=== PATIENT | male | born 1940 | race Caucasian/White ===

== ENCOUNTER 2016-07-23 11:31 | Emergency (ER) | payer MEDICARE, MEDICAID ==
[2016-07-23 12:05] VITALS: BP 101/54
[2016-07-23 12:44] LABS: CHLORIDE,CL 95 mmol/L (98-109); SODIUM,NA 135 mmol/L (138-146)
--- NOTE | 2016-07-23 13:01 | EDM.PDOC ---
ED HPI RENAL/ - General Chief Complaint: Genitourinary Problem Stated Complaint: UTI/SICK/KNEE PAIN Time Seen by Provider: 07/23/16 12:30 Source of Information: Reports: Patient History Limitations: Reports: No limitations - History of Present Illness INITIAL COMMENTS - FREE TEXT/NARRATIVE: This 75 yo male patient reports to the ED due to increased difficulties urinating and lower abdominal pain. The patient reports his problems started about 1 week ago, but his daughter reports it has been longer than that. Timing/Duration: Reports: Week(s):, Constant, Getting worse Location: Reports: urethral, suprapubic Quality: Reports: ache, burning Severity: moderate Worsens with: Reports: urinating Associated Symptoms: Reports: hesitancy, voiding small amounts - Related Data Allergies/ADRs: Allergies Allergy/AdvReac Type Severity Reaction Status Date / Time No Known Allergies Allergy Verified 03/18/13 15:06 Home Meds: Home Meds Diltiazem HCl [Cardizem LA] 240 mg PO DAILY 03/18/13 [History] Lisinopril 40 mg PO DAILY 03/18/13 [History] Potassium 99 mg PO ASDIRECTED 03/18/13 [History] atorvaSTATin [Lipitor] 20 mg PO BEDTIME 03/18/13 [History] glyBURIDE/Metformin HCl [Glucovance 5-500 MG] 1 each PO TID 03/18/13 [History] Hydrochlorothiazide 25 mg PO DAILY 09/19/15 [History] Aspirin [Ecotrin] 81 mg PO DAILY 04/01/16 [History] Past Medical History HEENT History: Reports: Impaired vision Other HEENT History: wears glasses Cardiovascular History: Reports: Afib, CAD, High cholesterol, Hypertension Respiratory History: Reports: COPD Gastrointestinal History: Reports: None Genitourinary History: Reports: UTI, recurrent Musculoskeletal History: Reports: Osteoarthritis Neurological History: Reports: CVA Psychiatric History: Reports: None Endocrine/Metabolic History: Reports: Diabetes, type II Hematologic History: Reports: None Immunologic History: Reports: None Oncologic (Cancer) History: Reports: None Dermatologic History: Reports: None - Infectious Disease History Infectious Disease History: Reports: Other (see below) Other Infectious Disease History: Pt unsure - Past Surgical History Cardiovascular Surgical History: Reports: Carotid stents, Percutaneous transluminal angioplasty GI Surgical History: Reports: Cholecystectomy Musculoskeletal Surgical History: Reports: Knee replacement Other Musculoskeletal Surgeries/Procedures:: left knee Social & Family History - Family History HEENT: Reports: None Cardiac: Reports: CAD, [place] Respiratory: Reports: Asthma GI: Reports: None : Reports: None OBGYN: Reports: None Musculoskeletal: Reports: None Neurological: Reports: Alzheimers disease Psychiatric: Reports: None Endocrine/Metabolic: Reports: None Hematologic: Reports: None Immunologic: Reports: None Oncologic: Reports: None - Tobacco Use Smoking Status *Q: Former Smoker Years of Tobacco use: 44 Packs/Tins Daily: 2 Used Tobacco, but Quit: Yes Month Tobacco Last Used: unknown Second Hand Smoke Exposure: Yes - Caffeine Use Caffeine Use: Reports: Coffee Caffeine Use Comment: 3 cups a day - Recreational Drug Use Recreational Drug Use: No ED ROS GENERAL - Review of Systems Review Of Systems: ROS reveals no pertinent complaints other than HPI. ED EXAM, RENAL/ - Physical Exam Exam: See Below Exam Limited By: No limitations General Appearance: alert, WD/WN, moderate distress Eye Exam: bilateral eye: EOMI, normal inspection, PERRL Ears: normal external exam, normal canal, hearing grossly normal, normal TMs Nose: normal inspection, normal mucosa, no blood Throat/Mouth: Normal inspection, Normal lips, Normal teeth, Normal gums, Normal oropharynx, Normal voice, No airway compromise Head: atraumatic, normocephalic Neck: normal inspection, supple, non-tender, full range of motion Respiratory/Chest: no respiratory distress, no accessory muscle use, chest non- tender, rhonchi (left lung base) Cardiovascular: normal peripheral pulses, regular rate, rhythm, no edema, no gallop, no JVD, no murmur, no rub GI/Abdominal: normal bowel sounds, soft, no organomegaly, no distention, no abnormal bruit, no mass, tender (lower abdominal pain to palpation) (Male) Exam: Deferred Rectal (Males) Exam: Deferred Back Exam: normal inspection, full range of motion, NT Extremities: normal inspection, normal range of motion, non-tender, normal capillary refill, no pedal edema Neurological: alert, oriented, CN II-XII intact, normal cognition, normal gait, normal reflexes, no motor/sensory deficits Psychiatric: normal affect, normal mood Skin Exam: Warm, Dry, Intact, Normal color, No rash Lymphatic: no adenopathy Course - Vital Signs Last Recorded V/S: Last Vital Signs Temp 36.2 C 07/23/16 12:04 Pulse 105 H 07/23/16 12:04 Resp 18 07/23/16 12:04 BP 101/54 L 07/23/16 12:04 Pulse Ox 98 07/23/16 12:04 - Orders/Labs/Meds Orders: Active Orders 24 hr Category Date Time Status CMP [COMPREHENSIVE METABOLIC PN,CMP] [CHEM] Stat Lab 07/23/16 12:20 Results CULTURE URINE [RM] Stat Lab 07/23/16 12:56 Ordered Labs: Laboratory Tests 07/23/16 07/23/16 07/23/16 Range/Units 12:10 12:20 12:20 WBC 16.3 H (5.0-10.0) 10^3/uL RBC 4.20 L (4.6-6.2) 10^6/uL Hgb 11.4 L (14.0-18.0) g/dL Hct 34.7 L (40.0-54.0) % MCV 82.6 (80-100) fL MCH 27.1 (27.0-34.0) pg MCHC 32.9 L (33.0-35.0) g/dL Plt Count 407 (150-450) 10^3/uL Neut % (Auto) 83.3 H (42.2-75.2) % Lymph % (Auto) 7.5 L (20.5-50.1) % [place] % (Auto) 8.9 H (2-8) % Eos % (Auto) 0.1 L (1.0-3.0) % Baso % (Auto) 0.2 (0.0-1.0) % Add Manual Diff Yes Neutrophils % (Manual) 75 % Band Neutrophils % 9 % Lymphocytes % (Manual) 11 % Monocytes % (Manual) 5 % Sodium 135 L (138-146) mmol/L Potassium 3.6 (3.5-4.9) mmol/L Chloride 95 L (98-109) mmol/L Carbon Dioxide 24 (24-29) mmol/L Anion Gap 19.6 BUN 16 (8-26) mg/dL Creatinine 1.1 (0.6-1.3) mg/dL Est Cr Clr Drug Dosing 45.26 mL/min Estimated GFR (MDRD) > 60 BUN/Creatinine Ratio 14.54 Glucose 217 H (70-105) mg/dL Calcium 1.1 Urine Color Yellow (YELLOW) Urine Appearance Turbid (CLEAR) Urine pH 5.5 (5.0-9.0) Ur Specific [place] >= 1.030 (1.005-1.030) Urine Protein 100 H (NEGATIVE) Urine Glucose (UA) 100 H (NEGATIVE) Urine Ketones Trace H (NEGATIVE) Urine Occult Blood Small H (NEGATIVE) Urine Nitrite Positive H (NEGATIVE) Urine Bilirubin Moderate H (NEGATIVE) Urine Urobilinogen 2.0 H (0.2-1.0) mg/dL Ur Leukocyte Esterase Small H (NEGATIVE) Urine RBC 20-30 H /HPF Urine WBC Packed H (0-5/HPF) /HPF Ur Epithelial Cells Few /HPF Urine Bacteria Many H (0-FEW/HPF) /HPF Departure - Departure Time of Disposition: 12:59 Disposition: Home, Self-Care 01 Condition: fair Clinical Impression: UTI, Urinary tract infectious disease Instructions: Urinary Tract Infection, Adult, [id number] Forms: ED Department Discharge Care Plan Goals: The patient was advised of the examination and lab results during the visit. The patient was given a script for Cipro (500 mg) to take 1 by mouth 2 times per day for 7 days. If the patient has any additional symptoms or concerns, the patient should follow-up with his primary care facility or return to the emergency department. - My Orders Last 24 Hours: My Active Orders 07/23/16 12:20 CMP [COMPREHENSIVE METABOLIC PN,CMP] [CHEM] Stat 07/23/16 12:56 CULTURE URINE [RM] Stat - Assessment/Plan Last 24 Hours: My Active Orders 07/23/16 12:20 CMP [COMPREHENSIVE METABOLIC PN,CMP] [CHEM] Stat 07/23/16 12:56 CULTURE URINE [RM] Stat
== END 2016-07-23 13:16 | disposition home or self-care (01) ==
LOC: DL.ED 11:31
DX: N39.0 Urinary tract infection, site not specified (principal); I48.91 Unspecified atrial fibrillation; I25.10 Atherosclerotic heart disease of native coronary artery without angina pectoris; E78.00 Pure hypercholesterolemia, unspecified; I10 Essential (primary) hypertension; J44.9 Chronic obstructive pulmonary disease, unspecified; M19.90 Unspecified osteoarthritis, unspecified site; E11.9 Type 2 diabetes mellitus without complications; Z90.49 Acquired absence of other specified parts of digestive tract; Z79.899 Other long term (current) drug therapy; Z79.82 Long term (current) use of aspirin; Z87.891 Personal history of nicotine dependence
CPT/HCPCS: 36415; 80053; 81001; 85025; 87086; 87088; 87186; 99283

== ENCOUNTER 2018-05-26 15:43 | Emergency (ER) | payer MEDICARE ==
--- NOTE | 2018-05-26 17:40 | EDM.PDOC ---
ED HPI GENERAL MEDICAL PROBLEM - General Chief Complaint: General Stated Complaint: UNKNOWN Time Seen by Provider: 05/26/18 15:55 Source of Information: Reports: Patient, Family, RN, RN Notes Reviewed History Limitations: Reports: No Limitations - History of Present Illness INITIAL COMMENTS - FREE TEXT/NARRATIVE: Pt to ER from [facility], Thao Osuna NP. Provider states pt was being seen in clinic for a rash on the arms when the patient was found to have some increased SOB, very pale color. Labs and diagnostics done there. Hgb found to be 6.2 at the clinic. Upon arrival to the ER pt denies any problems other than the red, itchy, dry rash on both arms from the elbow to the wrists. Patient denies recent illness, N/V/D, fever, chills, CP, blood in stools. He states he has recently had some increased SOB with activity. He also states he was recently constipated so yesterday took exlax. He states his family told him he took way too much. He states he had a normal BM this morning which did not have any blood. Stool for occult blood was negative at the clinic. Onset: Gradual - Related Data Allergies Allergy/AdvReac Type Severity Reaction Status Date / Time No Known Allergies Allergy Verified 05/26/18 15:54 Home Meds: Home Meds Diltiazem HCl [Cardizem LA] 240 mg PO DAILY 03/18/13 [History] Lisinopril 40 mg PO DAILY 03/18/13 [History] Potassium 99 mg PO DAILY 03/18/13 [History] atorvaSTATin [Lipitor] 20 mg PO BEDTIME 03/18/13 [History] Hydrochlorothiazide 25 mg PO DAILY 09/19/15 [History] Aspirin [Ecotrin] 81 mg PO DAILY 04/01/16 [History] glipiZIDE/Metformin HCl [GlipiZIDE-Metformin 5-500 MG] 1 tab PO DAILY 05/26/18 [ History] Past Medical History HEENT History: Reports: Impaired Vision Other HEENT History: wears glasses Cardiovascular History: Reports: Afib, CAD, High Cholesterol, Hypertension, Stents Respiratory History: Reports: COPD Gastrointestinal History: Reports: None Genitourinary History: Reports: UTI, Recurrent, Other (See Below) Musculoskeletal History: Reports: Osteoarthritis Neurological History: Reports: CVA Psychiatric History: Reports: None Endocrine/Metabolic History: Reports: Diabetes, Type II Hematologic History: Reports: None Immunologic History: Reports: None Oncologic (Cancer) History: Reports: None Dermatologic History: Reports: None - Infectious Disease History Infectious Disease History: Reports: Other (See Below) Other Infectious Disease History: Pt unsure - Past Surgical History Head Surgeries/Procedures: Reports: Other (See Below) Cardiovascular Surgical History: Reports: Carotid Stents, Percutaneous Transluminal Angioplasty GI Surgical History: Reports: Cholecystectomy Male Surgical History: Reports: Prostate Biopsy Musculoskeletal Surgical History: Reports: Knee Replacement Social & Family History - Family History HEENT: Reports: None Cardiac: Reports: CAD, [place] Respiratory: Reports: Asthma GI: Reports: None : Reports: None OBGYN: Reports: None Musculoskeletal: Reports: None Neurological: Reports: Alzheimers Disease Psychiatric: Reports: None Endocrine/Metabolic: Reports: None Hematologic: Reports: None Immunologic: Reports: None Oncologic: Reports: None - Tobacco Use Smoking Status *Q: Never Smoker - Caffeine Use Caffeine Use: Reports: Coffee Caffeine Use Comment: 3 cups a day - Recreational Drug Use Recreational Drug Use: No ED ROS GENERAL - Review of Systems Review Of Systems: ROS reveals no pertinent complaints other than HPI. ED EXAM, GENERAL - Physical Exam Exam: See Below Exam Limited By: No Limitations General Appearance: Alert, WD/WN, No Apparent Distress Eye Exam: Bilateral Eye: EOMI, Normal Inspection Ears: Normal External Exam, Hearing Loss Nose: Normal Inspection Throat/Mouth: Normal Inspection, Normal Voice, No Airway Compromise Head: Atraumatic, Normocephalic Neck: Normal Inspection, Supple, Non-Tender, Limited Range of Motion Respiratory/Chest: No Respiratory Distress, Decreased Breath Sounds, Crackles ( bases bilaterally) Cardiovascular: Normal Peripheral Pulses, Regular Rate, Rhythm, No Edema, No Gallop, No JVD, No Murmur, No Rub Peripheral Pulses: 2+: Radial (L), Radial (R) GI/Abdominal: Normal Bowel Sounds, Soft, Non-Tender, Distended (Male) Exam: Deferred Rectal (Males) Exam: Normal Rectal Tone, Heme + Stool Back Exam: Normal Inspection, Decreased Range of Motion Extremities: Normal Inspection, Non-Tender, No Pedal Edema, Normal Capillary Refill, Limited Range of Motion Neurological: Alert, Oriented, Normal Cognition Psychiatric: Normal Affect, Normal Mood Skin Exam: Warm, Dry, Pallor, Rash (lower arms bilaterally, red, dry/flaky, itchy, non-raised macular) Lymphatic: No Adenopathy Course - Vital Signs Last Recorded V/S: Last Vital Signs Temp 97.6 F 05/26/18 15:49 Pulse 66 05/26/18 15:49 Resp 18 05/26/18 15:49 BP 116/51 L 05/26/18 15:49 Pulse Ox 98 05/26/18 15:49 - Orders/Labs/Meds Orders: Active Orders 24 hr Category Date Time Status RED BLOOD CELLS LP [BBK] Stat Lab 05/26/18 16:39 Received TYPE AND SCREEN [BBK] Stat Lab 05/26/18 16:39 Received Transfuse Red Blood Cells [COMM] Stat Oth 05/26/18 17:17 Ordered Labs: Laboratory Tests 05/26/18 Range/Units 16:39 WBC 6.3 (5.0-10.0) 10^3/uL RBC 3.18 L (4.6-6.2) 10^6/uL Hgb 5.9 L* (14.0-18.0) g/dL Hct 21.4 L (40.0-54.0) % MCV 67.3 L (80-100) fL MCH 18.6 L (27.0-34.0) pg MCHC 27.6 L (33.0-35.0) g/dL Plt Count 407 D (150-450) 10^3/uL Neut % (Auto) 63.8 (42.2-75.2) % Lymph % (Auto) 24.6 (20.5-50.1) % [place] % (Auto) 9.0 H (2-8) % Eos % (Auto) 1.7 (1.0-3.0) % Baso % (Auto) 0.9 (0.0-1.0) % - Re-Assessments/Exams Free Text/Narrative Re-Assessment/Exam: 05/26/18 17:40 Discussed patient case with Dr. Irby who agreed to accept the patient for transfer to . Departure - Departure Time of Disposition: 18:20 Disposition: DC/Tfer to Acute Hospital 02 Condition: Fair, Serious Clinical Impression: GI bleed Qualifiers: GI bleed type/associated pathology: unspecified gastrointestinal hemorrhage type Qualified Code(s): K92.2 - Gastrointestinal hemorrhage, unspecified Anemia Qualifiers: Anemia type: unspecified type Qualified Code(s): D64.9 - Anemia, unspecified Leukopenia Qualifiers: Leukopenia type: neutropenia Neutropenia type: unspecified Qualified Code(s): D70.9 - Neutropenia, unspecified - Discharge Information *PRESCRIPTION DRUG MONITORING PROGRAM REVIEWED*: No *COPY OF PRESCRIPTION DRUG MONITORING REPORT IN PATIENT KJ: No Forms: ED Department Discharge, Interfacility Transfer EMTALA - My Orders Last 24 Hours: My Active Orders 05/26/18 16:39 RED BLOOD CELLS LP [BBK] Stat TYPE AND SCREEN [BBK] Stat 05/26/18 17:17 Transfuse Red Blood Cells [COMM] Stat - Assessment/Plan Last 24 Hours: My Active Orders 05/26/18 16:39 RED BLOOD CELLS LP [BBK] Stat TYPE AND SCREEN [BBK] Stat 05/26/18 17:17 Transfuse Red Blood Cells [COMM] Stat
[2018-05-26] MEDS ORDERED: Pantoprazole 40 MG Vial IVPUSH ONE (18:08)
[2018-05-26 18:32] VITALS: BP 115/50
== END 2018-05-26 18:44 ==
LOC: DL.ED 15:43
DX: K92.2 Gastrointestinal hemorrhage, unspecified (principal); D64.9 Anemia, unspecified; D70.9 Neutropenia, unspecified; R23.8 Other skin changes; I10 Essential (primary) hypertension; Z95.5 Presence of coronary angioplasty implant and graft; I25.10 Atherosclerotic heart disease of native coronary artery without angina pectoris; I48.91 Unspecified atrial fibrillation; E11.9 Type 2 diabetes mellitus without complications; Z79.82 Long term (current) use of aspirin; Z79.899 Other long term (current) drug therapy; Z86.73 Personal history of transient ischemic attack (TIA), and cerebral infarction without residual deficits; Z90.49 Acquired absence of other specified parts of digestive tract
CPT/HCPCS: 36415; 36430; 82272; 85025; 86850; 86900; 86901; 86920; 86922; 96374; 99284; C9113; P9016

== ENCOUNTER 2018-12-18 19:40 | Emergency (ER) | payer MEDICARE, MEDICAID ==
--- NOTE | 2018-12-18 19:48 | EDM.PDOC ---
ED HPI GENERAL MEDICAL PROBLEM - General Chief Complaint: Diabetic Complaint Time Seen by Provider: 12/18/18 19:44 Source of Information: Reports: Patient, EMS History Limitations: Reports: No Limitations - History of Present Illness INITIAL COMMENTS - FREE TEXT/NARRATIVE: pt states feels fine now, denies CP/SOB/RAMOS. EMS found pt unresponsive lying on recliner with BS 50. gave D50 pt immediately woke up and conversant without c/o. - Related Data Allergies Allergy/AdvReac Type Severity Reaction Status Date / Time No Known Allergies Allergy Verified 12/18/18 20:14 Home Meds: Home Meds Diltiazem HCl [Cardizem LA] 240 mg PO DAILY 03/18/13 [History] Lisinopril 40 mg PO DAILY 03/18/13 [History] Potassium 99 mg PO DAILY 03/18/13 [History] atorvaSTATin [Lipitor] 20 mg PO BEDTIME 03/18/13 [History] Hydrochlorothiazide 25 mg PO DAILY 09/19/15 [History] Aspirin [Ecotrin EC] 81 mg PO DAILY 04/01/16 [History] glipiZIDE/Metformin HCl [GlipiZIDE-Metformin 5-500 MG] 1 tab PO DAILY 05/26/18 [ History] Past Medical History HEENT History: Reports: Impaired Vision Other HEENT History: wears glasses Cardiovascular History: Reports: Afib, CAD, High Cholesterol, Hypertension, Stents Respiratory History: Reports: COPD Gastrointestinal History: Reports: None Genitourinary History: Reports: UTI, Recurrent, Other (See Below) Musculoskeletal History: Reports: Osteoarthritis Neurological History: Reports: CVA Psychiatric History: Reports: None Endocrine/Metabolic History: Reports: Diabetes, Type II Hematologic History: Reports: None Immunologic History: Reports: None Oncologic (Cancer) History: Reports: None Dermatologic History: Reports: None - Infectious Disease History Infectious Disease History: Reports: Other (See Below) Other Infectious Disease History: Pt unsure - Past Surgical History Head Surgeries/Procedures: Reports: Other (See Below) Cardiovascular Surgical History: Reports: Carotid Stents, Percutaneous Transluminal Angioplasty GI Surgical History: Reports: Cholecystectomy Male Surgical History: Reports: Prostate Biopsy Musculoskeletal Surgical History: Reports: Knee Replacement Social & Family History - Family History HEENT: Reports: None Cardiac: Reports: CAD, [place] Respiratory: Reports: Asthma GI: Reports: None : Reports: None OBGYN: Reports: None Musculoskeletal: Reports: None Neurological: Reports: Alzheimers Disease Psychiatric: Reports: None Endocrine/Metabolic: Reports: None Hematologic: Reports: None Immunologic: Reports: None Oncologic: Reports: None - Caffeine Use Caffeine Use: Reports: Coffee Caffeine Use Comment: 3 cups a day ED ROS GENERAL - Review of Systems Review Of Systems: ROS reveals no pertinent complaints other than HPI. ED EXAM GENERAL NO PERIP PULSE - Physical Exam Exam: See Below Exam Limited By: No Limitations General Appearance: Alert, WD/WN, No Apparent Distress Eye Exam: Bilateral Eye: PERRL (pupils ess ER @ 4mm) Ears: Hearing Grossly Normal Throat/Mouth: Normal Voice, No Airway Compromise Head: Atraumatic Neck: Non-Tender, Full Range of Motion Respiratory/Chest: No Respiratory Distress Cardiovascular: Regular Rate, Rhythm GI/Abdominal: Soft, Non-Tender Neurological: Alert, Oriented, Normal Cognition, No Motor/Sensory Deficits Psychiatric: Normal Affect, Normal Mood Skin Exam: Warm, Dry, Normal Color Lymphatic: No Adenopathy Course - Vital Signs Last Recorded V/S: Last Vital Signs Temp 36.4 C 12/18/18 19:47 Pulse 86 12/18/18 19:47 Resp 18 12/18/18 19:47 BP 104/52 L 12/18/18 19:47 Pulse Ox 98 12/18/18 19:47 - Orders/Labs/Meds Orders: Active Orders 24 hr Category Date Time Status EKG 12 Lead [EKG Documentation Completion] [RC] STAT Care 12/18/18 19:43 Active Labs: Laboratory Tests 12/18/18 12/18/18 12/18/18 Range/Units 19:46 19:52 19:52 WBC 7.7 (5.0-10.0) 10^3/uL RBC 3.62 L (4.6-6.2) 10^6/uL Hgb 11.5 L D (14.0-18.0) g/dL Hct 34.6 L (40.0-54.0) % MCV 95.6 D (80-100) fL MCH 31.8 (27.0-34.0) pg MCHC 33.2 (33.0-35.0) g/dL Plt Count 288 D (150-450) 10^3/uL Neut % (Auto) 81.1 H (42.2-75.2) % Lymph % (Auto) 10.4 L (20.5-50.1) % [place] % (Auto) 7.0 (2-8) % Eos % (Auto) 1.2 (1.0-3.0) % Baso % (Auto) 0.3 (0.0-1.0) % Sodium 136 (135-145) mmol/L Potassium 3.8 (3.6-5.0) mmol/L Chloride 102 (101-111) mmol/L Carbon Dioxide 23.0 (21.0-31.0) mmol/L Anion Gap 14.8 BUN 20 H (7-18) mg/dL Creatinine 0.9 (0.6-1.3) mg/dL Est Cr Clr Drug Dosing 59.07 mL/min Estimated GFR (MDRD) > 60 BUN/Creatinine Ratio 22.22 Glucose 174 H (74-105) mg/dL POC Glucose 176 H (83-110) mg/dl Calcium 8.9 (8.4-10.2) mg/dl Total Bilirubin 0.4 (0.2-1.0) mg/dL AST 20 (10-42) IU/L ALT 16 (10-60) IU/L Alkaline Phosphatase 74 (42-121) IU/L Troponin I < 0.02 (0.00-0.02) ng/ml Total Protein 6.4 L (6.7-8.2) g/dl Albumin 3.7 (3.2-5.5) g/dl Globulin 2.7 Albumin/Globulin Ratio 1.37 - Re-Assessments/Exams Free Text/Narrative Re-Assessment/Exam: 12/18/18 20:33 re-exam; pt alert conversing with family laughing. family state pt behaving normally. Departure - Departure Time of Disposition: 20:34 Disposition: Home, Self-Care 01 Condition: Good Clinical Impression: Hypoglycemia - Discharge Information Instructions: Hypoglycemia, [id number] Forms: ED Department Discharge Additional Instructions: 1) must check blood sugar daily 2) must eat first before taking diabetic medication 3) follow up at clinic - My Orders Last 24 Hours: My Active Orders 12/18/18 19:43 EKG 12 Lead [EKG Documentation Completion] [RC] STAT - Assessment/Plan Last 24 Hours: My Active Orders 12/18/18 19:43 EKG 12 Lead [EKG Documentation Completion] [RC] STAT
[2018-12-18 19:54] VITALS: BP 104/52; PULSE 86
[2018-12-18 20:21] LABS: ANION GAP 14.8; CHLORIDE,CL 102 mmol/L (101-111); SODIUM,NA 136 mmol/L (135-145)
== END 2018-12-18 20:45 | disposition home or self-care (01) ==
LOC: DL.ED 19:40
DX: E11.649 Type 2 diabetes mellitus with hypoglycemia without coma (principal); I10 Essential (primary) hypertension; E78.00 Pure hypercholesterolemia, unspecified; M19.90 Unspecified osteoarthritis, unspecified site; Z86.73 Personal history of transient ischemic attack (TIA), and cerebral infarction without residual deficits; Z90.49 Acquired absence of other specified parts of digestive tract; Z79.899 Other long term (current) drug therapy; Z79.82 Long term (current) use of aspirin
CPT/HCPCS: 36415; 80053; 82962; 84484; 85025; 93005; 99285-25

== ENCOUNTER 2020-11-17 23:54 | Inpatient (IN) | payer MEDICARE, MEDICAID ==
--- NOTE | 2020-11-18 00:26 | EDM.PDOC ---
"ED HPI GENERAL MEDICAL PROBLEM - General Chief Complaint: General Stated Complaint: AMBULANCE Time Seen by Provider: 11/18/20 00:15 Source of Information: Reports: Patient, EMS History Limitations: Reports: No Limitations - History of Present Illness INITIAL COMMENTS - FREE TEXT/NARRATIVE: This 80 yo male patient was brought to the ED from the [facility]) due to the patient not acting normally. EMS reports the patient was seated in his room in urine soaked clothing upon arrival. The patient reports he has been feeling normal today. The patient had difficulties remembering when he last ate food, but eventually reported he had eaten cereal this morning and again this evening. The patient reports he has not been out of his room today, but was out yesterday. The patient reports he was out of his room yesterday. The patient denies any current pain or complications. Onset: Unknown/Unsure Duration: Other Location: Reports: Generalized Quality: Reports: Other Severity: Moderate Improves with: Reports: None Worsens with: Reports: None Context: Reports: Other Associated Symptoms: Reports: No Other Symptoms - Related Data Allergies Allergy/AdvReac Type Severity Reaction Status Date / Time No Known Allergies Allergy Verified 11/18/20 00:20 Home Meds: Home Meds Diltiazem HCl [Cardizem LA] 240 mg PO DAILY 03/18/13 [History] Lisinopril 40 mg PO DAILY 03/18/13 [History] Potassium 20 meq PO DAILY 03/18/13 [History] atorvaSTATin [Lipitor] 20 mg PO BEDTIME 03/18/13 [History] Hydrochlorothiazide 25 mg PO DAILY 09/19/15 [History] Aspirin [Ecotrin EC] 81 mg PO DAILY 04/01/16 [History] glipiZIDE/Metformin HCl [GlipiZIDE-Metformin 5-500 MG] 1 tab PO DAILY 05/26/18 [History] Ferrous Sulfate [Iron] 324 mg PO DAILY 11/18/20 [History] Omeprazole 20 mg PO DAILY 11/18/20 [History] QUEtiapine [SEROquel] 25 mg PO DAILY 11/18/20 [History] Tamsulosin [Flomax] 0.4 mg PO DAILY 11/18/20 [History] Past Medical History HEENT History: Reports: Impaired Vision Other HEENT History: wears glasses Cardiovascular History: Reports: Afib, CAD, High Cholesterol, Hypertension, Stents Respiratory History: Reports: COPD Gastrointestinal History: Reports: None Genitourinary History: Reports: UTI, Recurrent, Other (See Below) Musculoskeletal History: Reports: Osteoarthritis Neurological History: Reports: CVA Psychiatric History: Reports: None Endocrine/Metabolic History: Reports: Diabetes, Type II Hematologic History: Reports: None Immunologic History: Reports: None Oncologic (Cancer) History: Reports: None Dermatologic History: Reports: None - Infectious Disease History Infectious Disease History: Reports: Other (See Below) Other Infectious Disease History: Pt unsure - Past Surgical History Head Surgeries/Procedures: Reports: Other (See Below) Cardiovascular Surgical History: Reports: Carotid Stents, Percutaneous Transluminal Angioplasty GI Surgical History: Reports: Cholecystectomy Male Surgical History: Reports: Prostate Biopsy Musculoskeletal Surgical History: Reports: Knee Replacement Social & Family History - Family History HEENT: Reports: None Cardiac: Reports: CAD, [place] Respiratory: Reports: Asthma GI: Reports: None : Reports: None OBGYN: Reports: None Musculoskeletal: Reports: None Neurological: Reports: Alzheimers Disease Psychiatric: Reports: None Endocrine/Metabolic: Reports: None Hematologic: Reports: None Immunologic: Reports: None Oncologic: Reports: None - Caffeine Use Caffeine Use: Reports: Coffee Caffeine Use Comment: 3 cups a day ED ROS GENERAL - Review of Systems Review Of Systems: Comprehensive ROS is negative, except as noted in HPI. ED EXAM, GENERAL - Physical Exam Exam: See Below Exam Limited By: No Limitations General Appearance: Alert, WD/WN, Moderate Distress, Obese Eye Exam: Bilateral Eye: EOMI, Normal Inspection, PERRL Ears: Normal External Exam, Normal Canal, Hearing Grossly Normal, Normal TMs Nose: Normal Inspection, Normal Mucosa, No Blood Throat/Mouth: Normal Inspection, Normal Lips, Normal Teeth, Normal Gums, Normal Oropharynx, Normal Voice, No Airway Compromise Head: Atraumatic, Normocephalic Neck: Normal Inspection, Supple, Non-Tender, Full Range of Motion Respiratory/Chest: No Respiratory Distress, No Accessory Muscle Use, Chest Non- Tender, Decreased Breath Sounds Cardiovascular: Normal Peripheral Pulses, Regular Rate, Rhythm, No Edema, No Gallop, No JVD, No Murmur GI/Abdominal: Normal Bowel Sounds, Soft, Non-Tender, No Organomegaly, No Distention, No Abnormal Bruit, No Mass (Male) Exam: Deferred Rectal (Males) Exam: Deferred Back Exam: Normal Inspection, Full Range of Motion, NT Extremities: Normal Inspection, Normal Range of Motion, Non-Tender, Normal Capillary Refill, No Pedal Edema Neurological: Alert, CN II-XII Intact, Normal Cognition, Normal Gait, Normal Reflexes, No Motor/Sensory Deficits, Confused, Slow to Respond Psychiatric: Normal Affect, Normal Mood Skin Exam: Warm, Dry, Intact, Normal Color, No Rash Lymphatic: No Adenopathy #1 Interpretation EKG Date: 11/18/20 Time: 00:10 Rhythm: Other (NSR with LBBB) [place]: Normal P-Wave: Present QRS: Normal ST-T: Normal QT: Normal Comparison: No Change (when compared to EKG from 12/19/18) Course - Vital Signs Last Recorded V/S: Last Vital Signs Temp 100.1 F 11/18/20 00:17 Pulse 84 11/18/20 00:17 Resp 20 11/18/20 00:17 BP 116/43 L 11/18/20 00:17 Pulse Ox 94 L 11/18/20 00:17 - Orders/Labs/Meds Orders: Active Orders 24 hr Category Date Time Status EKG Documentation Completion [RC] STAT Care 11/18/20 00:03 Active CULTURE BLOOD [BC] Stat Lab 11/18/20 00:15 Received CULTURE BLOOD [BC] Stat Lab 11/18/20 00:35 Ordered CULTURE URINE [RM] Urgent Lab 11/18/20 00:15 Received REFLEX LACTIC ACID YES OR NO [CHEM] Routine Lab 11/18/20 01:02 Received cefTRIAXone [Rocephin] 1 gm Med 11/18/20 01:06 Ordered Sodium Chloride 0.9% [Normal Saline] 50 ml IV ONETIME Medication Orders Ceftriaxone Sodium 1 gm/ (Sodium Chloride) 50 mls @ 100 mls/hr IV ONETIME ONE Stop: 11/18/20 01:35 Labs: Laboratory Tests 11/18/20 11/18/20 11/18/20 Range/Units 00:11 00:15 00:15 WBC 17.8 H (5.0-10.0) 10^3/uL RBC 3.81 L (4.6-6.2) 10^6/uL Hgb 12.2 L (14.0-18.0) g/dL Hct 36.5 L (40.0-54.0) % MCV 95.8 (80-100) fL MCH 32.0 (27.0-34.0) pg MCHC 33.4 (33.0-35.0) g/dL Plt Count 216 D (150-450) 10^3/uL Neut % (Auto) 87.3 H (42.2-75.2) % Lymph % (Auto) 2.7 L (20.5-50.1) % [place] % (Auto) 9.8 H (2-8) % Eos % (Auto) 0.0 L (1.0-3.0) % Baso % (Auto) 0.2 (0.0-1.0) % Sodium 139 (136-145) mmol/L Potassium 4.6 (3.5-5.1) mmol/L Chloride 102 (98-107) mmol/L Carbon Dioxide 23 (21-32) mmol/L Anion Gap 18.6 H (7-13) mEq/L BUN 21 H (7-18) mg/dL Creatinine 1.49 H (0.70-1.30) mg/dL Est Cr Clr Drug Dosing TNP Estimated GFR (MDRD) 45 BUN/Creatinine Ratio 14.1 (No establ ref range) Glucose 235 H (70-99) mg/dL Lactic Acid (0.4-2.0) mmol/L Calcium 8.9 (8.5-10.1) mg/dL Total Bilirubin 0.9 (0.2-1.0) mg/dL AST 10 L (15-37) U/L ALT 24 (16-63) U/L Alkaline Phosphatase 72 (46-116) U/L Troponin I High Sens 13 (<=76) pg/mL Total Protein 6.5 (6.4-8.2) g/dL Albumin 3.2 L (3.4-5.0) g/dL Globulin 3.3 Albumin/Globulin Ratio 0.97 Urine Color (YELLOW) Urine Appearance (CLEAR) Urine pH (5.0-9.0) Ur Specific [place] (1.005-1.030) Urine Protein (NEGATIVE) Urine Glucose (UA) (NEGATIVE) Urine Ketones (NEGATIVE) Urine Occult Blood (NEGATIVE) Urine Nitrite (NEGATIVE) Urine Bilirubin (NEGATIVE) Urine Urobilinogen (0.2-1.0) mg/dL Ur Leukocyte Esterase (NEGATIVE) Urine RBC (0-5) /HPF Urine WBC (0-5/HPF) /HPF Ur Epithelial Cells (NOT SEEN) /HPF Amorphous Sediment (NOT SEEN) /HPF Urine Bacteria (0-FEW/HPF) /HPF Urine Mucus (NOT SEEN) /LPF Influenza Type A RNA Negative (NEGATIVE) Influenza Type B RNA Negative (NEGATIVE) SARS-CoV-2 RNA (SWETHA) Negative (NEGATIVE) 11/18/20 11/18/20 Range/Units 00:15 00:15 WBC (5.0-10.0) 10^3/uL RBC (4.6-6.2) 10^6/uL Hgb (14.0-18.0) g/dL Hct (40.0-54.0) % MCV (80-100) fL MCH (27.0-34.0) pg MCHC (33.0-35.0) g/dL Plt Count (150-450) 10^3/uL Neut % (Auto) (42.2-75.2) % Lymph % (Auto) (20.5-50.1) % [place] % (Auto) (2-8) % Eos % (Auto) (1.0-3.0) % Baso % (Auto) (0.0-1.0) % Sodium (136-145) mmol/L Potassium (3.5-5.1) mmol/L Chloride (98-107) mmol/L Carbon Dioxide (21-32) mmol/L Anion Gap (7-13) mEq/L BUN (7-18) mg/dL Creatinine (0.70-1.30) mg/dL Est Cr Clr Drug Dosing Estimated GFR (MDRD) BUN/Creatinine Ratio (No establ ref range) Glucose (70-99) mg/dL Lactic Acid 3.1 H* (0.4-2.0) mmol/L Calcium (8.5-10.1) mg/dL Total Bilirubin (0.2-1.0) mg/dL AST (15-37) U/L ALT (16-63) U/L Alkaline Phosphatase (46-116) U/L Troponin I High Sens (<=76) pg/mL Total Protein (6.4-8.2) g/dL Albumin (3.4-5.0) g/dL Globulin Albumin/Globulin Ratio Urine Color Yellow (YELLOW) Urine Appearance Turbid (CLEAR) Urine pH 5.5 (5.0-9.0) Ur Specific [place] >= 1.030 (1.005-1.030) Urine Protein 30 H (NEGATIVE) Urine Glucose (UA) Negative (NEGATIVE) Urine Ketones Negative (NEGATIVE) Urine Occult Blood Moderate H (NEGATIVE) Urine Nitrite Positive H (NEGATIVE) Urine Bilirubin Negative (NEGATIVE) Urine Urobilinogen 0.2 (0.2-1.0) mg/dL Ur Leukocyte Esterase Large H (NEGATIVE) Urine RBC 10-20 H (0-5) /HPF Urine WBC Packed H (0-5/HPF) /HPF Ur Epithelial Cells Few (NOT SEEN) /HPF Amorphous Sediment Few (NOT SEEN) /HPF Urine Bacteria Many H (0-FEW/HPF) /HPF Urine Mucus Not seen (NOT SEEN) /LPF Influenza Type A RNA (NEGATIVE) Influenza Type B RNA (NEGATIVE) SARS-CoV-2 RNA (SWETHA) (NEGATIVE) Meds: Medications Generic Name Dose Route Start Last Admin Trade Name Freq PRN Reason Stop Dose Admin Ceftriaxone Sodium 1 gm/ 50 mls @ 100 mls/hr 11/18/20 01:06 Sodium Chloride IV 11/18/20 01:35 ONETIME ONE - Radiology Interpretation Free Text/Narrative:: [facility] Final Radiology Report Call: [phone] assistance Online chat: [email or web address] Name: EVELYN CORTES Age: 80Years M Date: 11/18/2020 SSN: -- : [id number] Study: CT HEAD WO CONT Requesting Physician: Fred Gramajo Images: 150 Addl Studies: Provided Clinical History: Altered mentation Contrast: Without Contrast Medium: Contrast Amount: Contrast Method: Page 1 of 2 PROCEDURE INFORMATION: Exam: CT Head Without Contrast Exam date and time: 11/18/2020 12:32 AM Age: 80 years old Clinical indication: Other: Altered mentation TECHNIQUE: Imaging protocol: Computed tomography of the head without contrast. Radiation optimization: All CT scans at this facility use at least one of these dose optimization techniques: automated exposure control; mA and/or kV adjustment per patient size (includes targeted exams where dose is matched to clinical indication); or iterative reconstruction. COMPARISON: CT Head wo Cont 12/19/2018 3:36 AM FINDINGS: Brain: There is moderate diffuse nonspecific white matter lucency. Differential diagnosis includes demyelination, gliosis, small vessel disease. Small vessel disease is favored. Stable subcentimeter remoteNo mass, collection or hemorrhage. No evolving infarct. lacunar infarcts left basal ganglia. Cerebral ventricles: There is moderate generalized cerebral volume loss. Paranasal sinuses: There is nonspecific mucoperiosteal thickening in the right maxillary sinus. The visualized paranasal sinuses are otherwise clear. Mastoid air cells: Mastoid air cells well aerated. Bones/joints: The temporal bones are symmetric and unremarkable. No acute bony findings are identified. Soft tissues: There is no soft tissue abnormality seen. IMPRESSION: 1. Chronic change, probably chronic ischemic change as described. 2. No acute intracranial hemorrhage. 3. No acute intracranial findings. EVELYN CORTES | Final Radiology Report CONFIDENTIALITY STATEMENT This report is intended only for use by the referring physician, and only in accordance with law. If you received this in error, call [phone]. Page 2 of 2 4. No change. Thank you for allowing us to participate in the care of your patient. Dictated and Authenticated by: Cain Quinn MD 11/18/2020 12:59 AM Central Time ([place] & [place]) [facility] Final Radiology Report Call: [phone] assistance Online chat: [email or web address] Name: EVELYN CORTES Age: 80Years M Date: 11/18/2020 SSN: -- : [id number] Study: CR CHEST 1V FRONTAL Requesting Physician: Fred Gramajo Images: 1 Addl Studies: Provided Clinical History: Altered mentation Contrast: Contrast Medium: Contrast Amount: Contrast Method: CONFIDENTIALITY STATEMENT This report is intended only for use by the referring physician, and only in accordance with law. If you received this in error, call [phone]. Page 1 of 1 PROCEDURE INFORMATION: Exam: XR Chest Exam date and time: 11/18/2020 12:37 AM Age: 80 years old Clinical indication: Other: Altered mentation TECHNIQUE: Imaging protocol: XR of the chest. Views: 1 view. COMPARISON: CR Chest 1V Frontal 12/19/2018 3:35 AM FINDINGS: Lungs: There is no evidence of pulmonary edema. There is minor nonspecific patchy linear density at left lung base which could be atelectatic, or inflammatory. Pleural spaces: No pleural effusion. No pneumothorax. Heart/Mediastinum: Prominent heart size is likely accentuated by portable technique. Coronary territory stents are visualized. Bones/joints: No acute bony findings are identified. IMPRESSION: There is minor nonspecific patchy linear density at left lung base which could be atelectatic, or inflammatory. Thank you for allowing us to participate in the care of your patient. Dictated and Authenticated by: Cain Quinn MD 11/18/2020 12:57 AM Central Time ([place] & [place]) Departure - Departure Time of Disposition: 01:21 Disposition: Home, Self-Care 01 Condition: Fair Clinical Impression: Sepsis Qualifiers: Sepsis type: sepsis due to unspecified organism Sepsis acute organ dysfunction status: unspecified Qualified Code(s): A41.9 - Sepsis, unspecified organism UTI (urinary tract infection) Qualifiers: Urinary tract infection type: site unspecified Hematuria presence: with hematuria Qualified Code(s): N39.0 - Urinary tract infection, site not specified; R31.9 - Hematuria, unspecified - Discharge Information *PRESCRIPTION DRUG MONITORING PROGRAM REVIEWED*: Not Applicable *COPY OF PRESCRIPTION DRUG MONITORING REPORT IN PATIENT KJ: Not Applicable Care Plan Goals: Discussed the patient's history, examination, lab, CT results and treatment's given with Dr. Peña. Dr. Peña accepted the patient for continued evaluation and further management as an inpatient at [facility]. Sepsis Event Note (ED) - Evaluation Sepsis Screening Result: Possible Sepsis Risk - Focused Exam Vital Signs: Vital Signs Temp Pulse Resp BP Pulse Ox 11/18/20 00:17 100.1 F 84 20 116/43 L 94 L - My Orders Last 24 Hours: My Active Orders 11/18/20 00:03 EKG Documentation Completion [RC] STAT 11/18/20 00:15 CULTURE BLOOD [BC] Stat CULTURE URINE [RM] Urgent 11/18/20 00:35 CULTURE BLOOD [BC] Stat 11/18/20 01:02 REFLEX LACTIC ACID YES OR NO [CHEM] Routine 11/18/20 01:06 cefTRIAXone [Rocephin] 1 gm Sodium Chloride 0.9% [Normal Saline] 50 ml IV ONETIME - Assessment/Plan Last 24 Hours: My Active Orders 11/18/20 00:03 EKG Documentation Completion [RC] STAT 11/18/20 00:15 CULTURE BLOOD [BC] Stat CULTURE URINE [RM] Urgent 11/18/20 00:35 CULTURE BLOOD [BC] Stat 11/18/20 01:02 REFLEX LACTIC ACID YES OR NO [CHEM] Routine 11/18/20 01:06 cefTRIAXone [Rocephin] 1 gm Sodium Chloride 0.9% [Normal Saline] 50 ml IV ONETIME"
[2020-11-18 00:49] LABS: ANION GAP 18.6 mEq/L (7-13); CHLORIDE,CL 102 mmol/L (98-107); SODIUM,NA 139 mmol/L (136-145)
--- NOTE | 2020-11-18 00:57 | CR ---
PROCEDURE INFORMATION: Exam: XR Chest Exam date and time: 11/18/2020 12:37 AM Age: 80 years old Clinical indication: Other: Altered mentation TECHNIQUE: Imaging protocol: XR of the chest. Views: 1 view. COMPARISON: CR Chest 1V Frontal 12/19/2018 3:35 AM FINDINGS: Lungs: There is no evidence of pulmonary edema. There is minor nonspecific patchy linear density at left lung base which could be atelectatic, or inflammatory. Pleural spaces: No pleural effusion. No pneumothorax. Heart/Mediastinum: Prominent heart size is likely accentuated by portable technique. Coronary territory stents are visualized. Bones/joints: No acute bony findings are identified. IMPRESSION: There is minor nonspecific patchy linear density at left lung base which could be atelectatic, or inflammatory.
--- NOTE | 2020-11-18 01:00 | CT ---
PROCEDURE INFORMATION: Exam: CT Head Without Contrast Exam date and time: 11/18/2020 12:32 AM Age: 80 years old Clinical indication: Other: Altered mentation TECHNIQUE: Imaging protocol: Computed tomography of the head without contrast. Radiation optimization: All CT scans at this facility use at least one of these dose optimization techniques: automated exposure control; mA and/or kV adjustment per patient size (includes targeted exams where dose is matched to clinical indication); or iterative reconstruction. COMPARISON: CT Head wo Cont 12/19/2018 3:36 AM FINDINGS: Brain: There is moderate diffuse nonspecific white matter lucency. Differential diagnosis includes demyelination, gliosis, small vessel disease. Small vessel disease is favored. Stable subcentimeter remoteNo mass, collection or hemorrhage. No evolving infarct. lacunar infarcts left basal ganglia. Cerebral ventricles: There is moderate generalized cerebral volume loss. Paranasal sinuses: There is nonspecific mucoperiosteal thickening in the right maxillary sinus. The visualized paranasal sinuses are otherwise clear. Mastoid air cells: Mastoid air cells well aerated. Bones/joints: The temporal bones are symmetric and unremarkable. No acute bony findings are identified. Soft tissues: There is no soft tissue abnormality seen. IMPRESSION: 1. Chronic change, probably chronic ischemic change as described. 2. No acute intracranial hemorrhage. 3. No acute intracranial findings. 4. No change.
[2020-11-18] MEDS ORDERED: cefTRIAXone 1 GM in Sodium Chloride 0.9% 50 ML IV ONE (01:06)
[2020-11-18 01:09] LABS: CORONAVIRUS COVID-19 NAA NEGATIVE (NEGATIVE)
[2020-11-18] MEDS ORDERED: Sodium Chloride 0.9% 1,000 ML IV SCH ×2 (01:15→02:00)
[2020-11-18] MEDS ORDERED: Sodium Chloride 0.9% 10 ML Syringe FLUSH PRN (02:00)
[2020-11-18] MEDS ORDERED: Acetaminophen 325 MG Tab PO PRN (02:00)
[2020-11-18] MEDS ORDERED: Ondansetron 4 MG/2 ML SDV IVPUSH PRN (02:00)
[2020-11-18] MEDS ORDERED: 50% Dextrose in Water 50 ML Syringe IVPUSH PRN (02:06)
[2020-11-18] MEDS ORDERED: Glucagon,Human Recombinant 1 MG Vial IM PRN (02:06)
--- NOTE | 2020-11-18 02:12 | PCM.SN.2 ---
- Free Text/Narrative Note: START OF DOCTOR YANIRAMILandon HISTORY AND PHYSICAL / CONSULTATION NOTE Chief Complaint: Encephalopathy History of Present Illness: The patient is new to-year-old male who was transferred from assisted living because of encephalopathy. Upon questioning of the patient he endorses no complaints and for the most part is able to answer questions appropriately. He denies fever, rigors, nausea, vomiting, cough, wheeze, abdominal pain, diarrhea, myalgia, dysuria, chest pain, dyspnea, lightheadedness, dizziness, or any other constitutional complaints. In the emergency department he is found to have urinary tract infection. He presents for further evaluation Surgical History: Cholecystectomy, appendectomy, cardiac stent placement, prostate biopsy, left knee surgery. There is previous documentation of carotid stent however the patient is uncertain of this Family History: Cancer, stroke, diabetes, coronary artery disease, hypertension, hyperlipidemia Social History: Tobacco: Former smoker Alcohol: Denies Caffeine: Coffee Drugs: Never Allergies: No known drug allergies Code Status: Full Pertinent Laboratory Results / Pertinent Radiology Results / Pertinent Diagnostic Results / Pertinent Vital Signs: Blood pressure 99/45, pulse 90, respirations 20, temperature 98.8 degrees, 94%, creatinine 1.49, glucose 23 5, white blood cell count 17.8, hemoglobin 12.2 Physical Examination: General: -Alert and oriented to name and place but not year -No acute distress -No dyspnea -No tachypnea Head: -Atraumatic -Normocephalic Eyes: -Pupils equally round and reactive to light and accommodation -Extraocular muscles intact Neurological: -Cranial nerves II-XII intact Neck: -No jugular venous distention -No thyromegaly -No cervical lymphadenopathy Heart: -Regular rate -Regular rhythm -No murmurs -No gallops -No rubs Lungs: -No wheeze -No rhonchi -No rales -Distant breath sounds bilaterally Abdomen: -Normal bowel sounds in all four quadrants -No rebound -No guarding -No tenderness Extremities: -2/4 pulse in all four extremities -No clubbing -No cyanosis -No edema -No calf tenderness present bilaterally -Negative Homans sign bilaterally Musculoskeletal: -5/5 bilateral upper extremity strength -5/5 bilateral lower extremity strength -Sensorium of bilateral upper extremities are equal and intact -Sensorium of bilateral lower extremities are equal and intact Additional Details / Additional Findings / Exceptions / Miscellaneous: Assessment / Plan: Urinary tract infection. Zosyn 3.375 g IV every 6 hours. Check PSA. Blood culture x2 drawn in the emergency department Acute renal sufficiency. Will monitor creatinine intermittently. IV normal saline 75 mils per hour Paroxysmal atrial fibrillation History of CVA Osteoarthritis BPH Anemia. Will monitor hemoglobin levels intermittently. Check serum ferritin, iron panel, fecal occult blood COPD. DuoNeb every 6 hours Coronary artery disease, status post [place], status post [place] Diabetes. Will check fasting glucose before every meal and at bedtime and provide sulci scale GERD Hyperlipidemia Hypertension Query history of peripheral vascular disease DVT prophylaxis. Heparin 5000 units subcutaneously every 12 hours Disposition: Anticipate discharge with 24 hours. At the time of admission, the patient home medications were pending input into the EMR/DHR system. Once their input, they will be reviewed and reconciled END OF DOCTOR EMAMIS HISTORY AND PHYSICAL / CONSULTATION NOTE
[2020-11-18] MEDS: Heparin Sodium 5,000 Units/ML Vial SUBCUT SCH ×2 (02:28→14:50)
[2020-11-18] MEDS: Piperacillin/Tazobactam 3.375 GM in Sodium Chloride 0.9% 100 ML IV SCH ×5 (02:28→23:56)
--- NOTE | 2020-11-18 07:27 | PCM.SN.2 ---
- Free Text/Narrative Note: START OF DOCTOR MANJEET PROGRESS NOTE Subjective: The patient endorses no complaints at this time. He denies fever, rigors, nausea, vomiting, cough, wheeze, abdominal pain, chest pain, dyspnea, dysuria, or any other constitutional complaints. I explained to the patient his current medical condition and plan of care and I have answered all of his questions Objective: General: -Alert -No acute distress -No dyspnea -Patient mildly tachypneic Heart: -Regular rate -Regular rhythm -No murmurs -No gallops -No rubs Lungs: -No wheeze -No rhonchi -No rales Distant breath sounds bilaterally- Abdomen: -Normal bowel sounds in all four quadrants -No rebound -No guarding -No tenderness Extremities: -2/4 pulse in all four extremities -No clubbing -No cyanosis -No edema Additional Details / Additional Findings / Exceptions / Miscellaneous: Pertinent Laboratory Results / Pertinent Radiology Results / Pertinent Diagnostic Results / Pertinent Vital Signs: Vital signs stable Assessment / Plan: Urinary tract infection. Zosyn 3.375 g IV every 6 hours. Check PSA. Blood culture x2 drawn in the emergency department Acute renal sufficiency. Will monitor creatinine intermittently. IV normal saline 75 mils per hour Paroxysmal atrial fibrillation. Cardizem LA 240 mg p.o. daily History of CVA. Aspirin 81 mg p.o. daily plus Lipitor 20 mg p.o. nightly Osteoarthritis BPH. Flomax 0.4 mg p.o. daily. PSA grossly elevated for which patient will require outpatient follow-up with urology upon discharge Iron deficiency anemia. Will monitor hemoglobin levels intermittently. Ferrous sulfate 3 and 25 mg p.o. twice daily plus vitamin C 500 mg p.o. daily COPD. DuoNeb every 6 hours plus Solu-Medrol 60 mg IV every 8 hours Coronary artery disease, status post [place], status post [place]. Aspirin 81 mg p.o. daily plus Lipitor 20 mg p.o. nightly Diabetes. Will check fasting glucose before every meal and at bedtime and provide sulci scale plus glipizide/Metformin 5/500 mg p.o. daily GERD. Prilosec 20 mg p.o. daily Hyperlipidemia. Lipitor 20 mg p.o. nightly Hypertension. Cardizem LA 240 mg p.o. daily Query history of peripheral vascular disease. Aspirin 81 mg p.o. daily plus Lipitor 20 mg p.o. nightly DVT prophylaxis. Heparin 5000 units subcutaneously every 12 hours Disposition: Anticipate discharge within 24 hours END OF DOCTOR EMAMIS PROGRESS NOTE
[2020-11-18] MEDS: Albuterol/Ipratropium 3.0-0.5 MG/3 ML Neb Soln NEB SCH ×3 (07:45→18:51)
[2020-11-18] MEDS: Insulin Lispro 100 Units/ML 3 ML Vial SUBCUT SCH ×3 (08:55→17:07)
[2020-11-18] MEDS: methylPREDNISolone Sodium Succinate 40 MG/1 ML SDV IVPUSH SCH ×3 (08:58→23:51)
[2020-11-18] MEDS ORDERED: Omeprazole 20 MG Cap.CR PO SCH (09:00)
[2020-11-18] MEDS: Aspirin 81 MG Tab.EC PO SCH (09:04)
[2020-11-18] MEDS: Ascorbic Acid 500 MG Tab PO SCH (09:06)
[2020-11-18] MEDS: Diltiazem 240 MG Cap.ER PO SCH (09:06)
[2020-11-18] MEDS: Ferrous Sulfate 325 MG Tab PO SCH ×2 (09:06→17:49)
[2020-11-18] MEDS: Tamsulosin 0.4 MG Cap.ER PO SCH (09:06)
[2020-11-18] MEDS: glipiZIDE 5 MG Tab PO SCH (09:07)
[2020-11-18] MEDS: metFORMIN 500 MG Tab PO SCH (09:07)
--- NOTE | 2020-11-18 11:43 | PCM.SN.2 ---
- Free Text/Narrative Note: START OF DOCTOR EMAMIS DISCHARGE SUMMARY Date of Admission: November 18, 2020 Date of Discharge: 11:41 AM on November 18, 2020 Primary Diagnosis: Urinary tract affection Secondary Diagnosis: Acute renal insufficiency, status post treatment Paroxysmal atrial fibrillation History of CVA Osteoarthritis BPH Iron deficiency anemia COPD Coronary artery disease, status post MD, status post stent Diabetes GERD Hyperlipidemia Hypertension Query history of peripheral vascular disease Consultations: None Condition on Discharge: Fair Disposition: The patient will be advised follow-up with urology 2 to 4 weeks post discharge for diagnosis PSA. The elevation of PSA is disproportionate to what would be expected with her urinary tract infection The patient may follow-up with his primary care physician or with a provider as needed Discharge Medications: Metformin 500 mg p.o. twice daily Imdur 30 mg p.o. daily Glucotrol XL 5 mg p.o. daily Bactrim 400/80 m tab p.o. twice daily. Quantity 12. 0 refills Flomax 0.4 mg p.o. daily Seroquel 25 mg p.o. nightly Prilosec 20 mg p.o. daily Prednisone 10 mg p.o.: 4 tabs daily x3 days then 3 tabs daily x3 days then 2 tabs daily x3 days then 1 tab daily x3 days. Quantity sufficient. 0 refills Ferrous sulfate 325 mg p.o. twice daily Vitamin C 500 mg p.o. daily Aspirin 81 mg p.o. daily Lipitor 20 mg p.o. nightly Cardizem LA 240 mg p.o. daily Lisinopril 40 mg p.o. daily to be resumed on November 21, 2020 END OF DOCTOR EMAMIS DISCHARGE SUMMARY
[2020-11-18] MEDS: QUEtiapine 25 MG Tab PO SCH (12:37)
[2020-11-18] MEDS ORDERED: Insulin Lispro 100 Units/ML 3 ML Vial SUBCUT ONE ×3 (20:57→23:38)
[2020-11-18] MEDS ORDERED: atorvaSTATin 20 MG Tab PO SCH (21:00)
[2020-11-19] MEDS: Albuterol/Ipratropium 3.0-0.5 MG/3 ML Neb Soln NEB SCH ×2 (00:52→07:48)
[2020-11-19] MEDS ORDERED: Omeprazole 20 MG Cap.CR PO SCH (06:00)
[2020-11-19] MEDS: Piperacillin/Tazobactam 3.375 GM in Sodium Chloride 0.9% 100 ML IV SCH (06:03)
--- NOTE | 2020-11-19 07:03 | PCM.SN.2 ---
- Free Text/Narrative Note: START OF DOCTOR EMAMIS DISCHARGE SUMMARY Date of Admission: November 18, 2020 Date of Discharge: 7:01 AM on November 19, 2020 Primary Diagnosis: Urinary tract affection Secondary Diagnosis: Gram-negative alyssa bacteremia, speciation pending at time of discharge Acute renal insufficiency, status post treatment Paroxysmal atrial fibrillation History of CVA Osteoarthritis BPH Iron deficiency anemia COPD Coronary artery disease, status post AR, status post stent Diabetes GERD Hyperlipidemia Hypertension Query history of peripheral vascular disease Consultations: None Condition on Discharge: Fair Disposition: The patient will be advised follow-up with urology 2 to 4 weeks post discharge for diagnosis PSA. The elevation of PSA is disproportionate to what would be expected with her urinary tract infection The patient is advised to follow-up with his primary care physician or with a provider 3-5 days post discharge for posthospitalization evaluation and for antibiotic tailoring once final speciation of blood cultures/urine culture is available Discharge Medications: Metformin 500 mg p.o. twice daily Imdur 30 mg p.o. daily Glucotrol XL 5 mg p.o. daily Bactrim 400/80 m tab p.o. twice daily. Quantity 20. 0 refills Flomax 0.4 mg p.o. daily Seroquel 25 mg p.o. nightly Prilosec 20 mg p.o. daily Prednisone 10 mg p.o.: 4 tabs daily x3 days then 3 tabs daily x3 days then 2 tabs daily x3 days then 1 tab daily x3 days. Quantity sufficient. 0 refills Ferrous sulfate 325 mg p.o. twice daily Vitamin C 500 mg p.o. daily Aspirin 81 mg p.o. daily Lipitor 20 mg p.o. nightly Cardizem LA 240 mg p.o. daily Lisinopril 40 mg p.o. daily to be resumed on November 21, 2020 END OF DOCTOR EMAMIS DISCHARGE SUMMARY
[2020-11-19] MEDS ORDERED: Insulin Lispro 100 Units/ML 3 ML Vial SUBCUT SCH (08:00)
[2020-11-19 08:16] VITALS: BP 110/81; PULSE 76
[2020-11-19] MEDS: Diltiazem 240 MG Cap.ER PO SCH (08:25)
[2020-11-19] MEDS: Aspirin 81 MG Tab.EC PO SCH (08:26)
[2020-11-19] MEDS: glipiZIDE 5 MG Tab PO SCH (08:26)
[2020-11-19] MEDS: metFORMIN 500 MG Tab PO SCH (08:27)
[2020-11-19] MEDS: Ferrous Sulfate 325 MG Tab PO SCH (08:27)
[2020-11-19] MEDS: Ascorbic Acid 500 MG Tab PO SCH (08:27)
[2020-11-19] MEDS: QUEtiapine 25 MG Tab PO SCH (08:28)
[2020-11-19] MEDS: Tamsulosin 0.4 MG Cap.ER PO SCH (08:28)
[2020-11-19] MEDS: methylPREDNISolone Sodium Succinate 40 MG/1 ML SDV IVPUSH SCH (08:48)
[2020-11-19] MEDS ORDERED: Heparin Sodium 5,000 Units/ML Vial SUBCUT SCH (09:00)
== END 2020-11-19 10:30 | DRG 690 ==
LOC: DL.ED 23:54 → DL.MS 11-18 01:18 → INTOOBSV 11-18 01:18 → OBSVTOIN 11-18 01:18 → DL.ED 11-18 01:27
PROVIDERS: ADMIT Internal Medicine; ATTEND Internal Medicine
DX: A41.9 Sepsis, unspecified organism (principal); N39.0 Urinary tract infection, site not specified; R31.9 Hematuria, unspecified; H54.7 Unspecified visual loss; I48.91 Unspecified atrial fibrillation; N28.9 Disorder of kidney and ureter, unspecified; I48.0 Paroxysmal atrial fibrillation; E78.00 Pure hypercholesterolemia, unspecified; M19.90 Unspecified osteoarthritis, unspecified site; N40.0 Benign prostatic hyperplasia without lower urinary tract symptoms; D50.9 Iron deficiency anemia, unspecified; J44.9 Chronic obstructive pulmonary disease, unspecified; I25.10 Atherosclerotic heart disease of native coronary artery without angina pectoris; E11.9 Type 2 diabetes mellitus without complications; K21.9 Gastro-esophageal reflux disease without esophagitis; E78.5 Hyperlipidemia, unspecified; I10 Essential (primary) hypertension; Z20.822 Contact with and (suspected) exposure to COVID-19; D64.9 Anemia, unspecified; I73.9 Peripheral vascular disease, unspecified; Z87.440 Personal history of urinary (tract) infections; Z95.828 Presence of other vascular implants and grafts; Z79.84 Long term (current) use of oral hypoglycemic drugs; Z79.82 Long term (current) use of aspirin; Z79.899 Other long term (current) drug therapy; Z90.49 Acquired absence of other specified parts of digestive tract; I25.2 Old myocardial infarction; Z98.890 Other specified postprocedural states; Z95.5 Presence of coronary angioplasty implant and graft; Z86.73 Personal history of transient ischemic attack (TIA), and cerebral infarction without residual deficits; Z87.891 Personal history of nicotine dependence
CPT/HCPCS: 0240U; 36415; 70450; 71045; 80053; 81001; 82272; 82565; 82728; 82947; 83540; 83550; 83605; 84153; 84484; 85025; 87040; 87077; 87086; 87088; 87186; 93005; 93010; 94640; 99284; 99285-25; A9270-GY; J0696; J1644; J1815-GY; J2543; J2920; J7030; J7620-GY

== ENCOUNTER 2020-12-06 02:49 | Emergency (ER) | payer MEDICARE, MEDICAID ==
[2020-12-06 03:00] VITALS: PULSE 72
--- NOTE | 2020-12-06 03:14 | EDM.PDOC ---
"<Ramon Lam Gaudencio - Last Filed: 12/06/20 09:18> ED HPI GENERAL MEDICAL PROBLEM - General Stated Complaint: AMBULANCE Time Seen by Provider: 12/06/20 03:01 - Related Data Allergies Allergy/AdvReac Type Severity Reaction Status Date / Time No Known Allergies Allergy Verified 12/06/20 03:03 Home Meds: Home Meds Diltiazem HCl [Cardizem LA] 240 mg PO DAILY 03/18/13 [History] Lisinopril 40 mg PO DAILY 03/18/13 [History] atorvaSTATin [Lipitor] 20 mg PO BEDTIME 03/18/13 [History] Aspirin [Ecotrin EC] 81 mg PO DAILY 04/01/16 [History] Ascorbic Acid [Vitamin C] 500 mg PO DAILY 30 Days #30 tablet 11/18/20 [Rx] Ferrous Sulfate 325 mg PO BIDMEALS 30 Days #60 tablet 11/18/20 [Rx] Isosorbide Mononitrate [Imdur] 30 mg PO DAILY 11/18/20 [History] Omeprazole 20 mg PO DAILY 11/18/20 [History] QUEtiapine [SEROquel] 25 mg PO BEDTIME 11/18/20 [History] Tamsulosin [Flomax] 0.4 mg PO DAILY 11/18/20 [History] glipiZIDE [Glucotrol XL] 5 mg PO DAILY 11/18/20 [History] metFORMIN [Glucophage] 500 mg PO BIDMEALS 11/18/20 [History] predniSONE [Prednisone] 10 mg PO DAILY 1 Days #1 tablet 11/18/20 [Rx] Sulfamethoxazole/Trimethoprim [Bactrim 400-80 MG] 1 each PO BID 10 Days #20 tablet 11/19/20 [Rx] Course - Re-Assessments/Exams Free Text/Narrative Re-Assessment/Exam: 12/06/20 07:24 Assumed care from CLERGY MEMBER Sadie Jamil. Pt resting comfortably and is currently pain free. I informed him that his radiograph findings suggest a bowel obstruction and that he will need an NG tube. Pt is agreeable to the proposed course of action. 12/06/20 09:19 NG tube was placed and tolerated well. Pt was taken for CT scan of the Abd later on and the read showed no bowel obstruction. The NG tube will be discontinued. Tony is now pain free and feels much better. He expressed a desire to go home and does not want to be admitted. We will discharge the patient to his residence. 12/06/20 09:21 Departure - Departure Time of Disposition: 09:22 Disposition: Home, Self-Care 01 Condition: Good Clinical Impression: Ileus Instructions: Ileus Forms: ED Department Discharge Additional Instructions: If any new symptoms or concerns develop contact your primary care facility or return to the ER. <Otf Roman - Last Filed: 12/06/20 09:39> Course - Radiology Interpretation Free Text/Narrative:: [facility] [place] [facility] Final Radiology Report Call: [phone] assistance Online chat: [email or web address] Name: TONY CORTES Age: 80Years M Date: 12/06/2020 SSN: -- : 1940 Study: CT ABDOMEN PELVIS W CONT Requesting Physician: OTF ROMAN Images: 432 Addl Studies: Provided Clinical History: Abdominal pain/distention, suspected SBO Contrast: With Contrast Medium: Isovue 300 Contrast Amount: 75 mL Contrast Method: Intravenous (IV) Page 1 of 3 PROCEDURE INFORMATION: Exam: CT Abdomen And Pelvis With Contrast Exam date and time: 12/06/2020 8:24 AM Age: 80 years old Clinical indication: Abdominal pain; Prior surgery; Additional info: Abdominal pain/distention, suspected sbo TECHNIQUE: Imaging protocol: Computed tomography of the abdomen and pelvis with contrast. Radiation optimization: All CT scans at this facility use at least one of these dose optimization techniques: automated exposure control; mA and/or kV adjustment per patient size (includes targeted exams where dose is matched to clinical indication); or iterative reconstruction. Contrast material: ISOVUE 300; Contrast volume: 75 ml; Contrast route: INTRAVENOUS (IV); COMPARISON: CR Abdomen 1V Flat 12/06/2020 4:41 AM FINDINGS: Lungs: No acute abnormality is seen in the lung bases. Heart: Borderline cardiomegaly. Mitral valve annular calcification noted. Liver: Normal. No mass. Gallbladder and bile ducts: Prior cholecystectomy. The common bile duct measures up to 11 mm in diameter which is within normal limits considering the patient's age group and prior surgery. The intrahepatic biliary ducts appear normal. Pancreas: Normal. No dilatation of the main pancreatic duct. Spleen: Normal. No splenomegaly. Adrenal glands: Normal. No mass. TONY CORTES | Final Radiology Report Page 2 of 3 Kidneys and ureters: There is a 1.1 cm hypodense mass present in the lower pole cortex of the right kidney on image 38 of series 2. This mass has a benign appearance with a smooth, well-defined thin wall and low internal CT attenuation and is likely a Bosniak type I simple cyst. Stomach and bowel: Moderate distal colonic diverticulosis is present, with no evidence of acute diverticulitis. No bowel obstruction or significant ileus. No mucosal thickening. An esophagogastric tube is present with the distal tip of the tube in the left upper quadrant abdomen gastric fundus region. Appendix: No evidence of appendicitis. Intraperitoneal space: Unremarkable. No free air. No significant fluid collection. Vasculature: Atherosclerotic calcific plaque disease is present in the abdominal aorta and iliofemoral arteries. No abdominal aortic aneurysm. Lymph nodes: Unremarkable. No enlarged lymph nodes. Urinary bladder: Unremarkable as visualized. Reproductive: The prostate is at the upper limits of normal size measuring 4.8 cm transversely. 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 Chronic calcific enthesopathy is seen in the attachments of the hamstring tendons to the inferior ischial tuberosities bilaterally. Soft tissues: Unremarkable. IMPRESSION: 1. Moderate distal colonic diverticulosis is present, with no evidence of acute diverticulitis. No bowel obstruction or significant ileus. No mucosal thickening. An esophagogastric tube is present with the distal tip of the tube in the left upper quadrant abdomen gastric fundus region. 2. Borderline cardiomegaly. Mitral valve annular calcification noted. 3. Prior cholecystectomy. The common bile duct measures up to 11 mm in diameter which is within normal limits considering the patient's age group and prior surgery. The intrahepatic biliary ducts appear normal. 4. There is a 1.1 cm hypodense mass present in the lower pole cortex of the right kidney on image 38 of series 2. This mass has a benign appearance with a smooth, well-defined thin wall and low internal CT attenuation and is likely a Bosniak type I simple cyst. No further follow-up is recommended. Reference: Johan JACOBSON, Management of the Incidental Renal Mass on CT: A White Paper of the ACR Incidental Findings Committee, J Am Marco A Radiol 2018. No hydronephrosis. 5. Atherosclerotic calcific plaque disease is present in the abdominal aorta and iliofemoral arteries. No abdominal aortic aneurysm. 6. The prostate is at the upper limits of normal size measuring 4.8 cm transversely. 7. 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 TONY CORTES | Final Radiology Report CONFIDENTIALITY STATEMENT This report is intended only for use by the referring physician, and only in accordance with law. If you received this in error, call [phone]. Page 3 of 3 Chronic calcific enthesopathy is seen in the attachments of the hamstring tendons to the inferior ischial tuberosities bilaterally. COMMENTS: Consistent with the [employer]'s Incidental Findings Committee white paper (J Am Marco A Radiol 2018): Any incidental renal lesion less than 1 cm or classified as too small to characterize, or any incidental cystic renal lesion characterized as simple- appearing, is likely benign. No follow-up imaging is recommended for these lesions per consensus recommendations based on imaging criteria. Thank you for allowing us to participate in the care of your patient. Dictated and Authenticated by: Maulik Zuñiga MD 12/06/2020 8:51 AM Central Time ([place] & [place]) <Stacey Jamil - Last Filed: 12/12/20 10:21> ED HPI GENERAL MEDICAL PROBLEM - General Source of Information: Reports: Patient, RN, RN Notes Reviewed - History of Present Illness INITIAL COMMENTS - FREE TEXT/NARRATIVE: Tony is an 80 y/o male from local [facility] who presents to the ED via [facility] with complaints of abdominal pain (EMS was originally called for chest pain). Upon arrival the patient denies pain but notes he experienced a cramping pain epigastric region which woke him from sleep. He denies recent illness, fever, shaking chills, chest pain, palpitations, nausea, vomiting, constipation, diarrhea, or dysuria. The patient states his last meal was at approximately 1700 yesterday, but notes his appetite was decreased. He is unsure of his last bowel movement. Mid-Sternal Abdomen Pain Score (Numeric/FACES): 3 Past Medical History HEENT History: Reports: Impaired Vision Other HEENT History: wears glasses Cardiovascular History: Reports: Afib, CAD, High Cholesterol, Hypertension, Stents Respiratory History: Reports: COPD Gastrointestinal History: Reports: None Genitourinary History: Reports: UTI, Recurrent Musculoskeletal History: Reports: Osteoarthritis Neurological History: Reports: CVA Psychiatric History: Reports: Dementia Endocrine/Metabolic History: Reports: Diabetes, Type II Hematologic History: Reports: None Immunologic History: Reports: None Oncologic (Cancer) History: Reports: None Dermatologic History: Reports: None - Infectious Disease History Infectious Disease History: Reports: Other (See Below) Other Infectious Disease History: Pt unsure - Past Surgical History Head Surgeries/Procedures: Reports: Other (See Below) Cardiovascular Surgical History: Reports: Carotid Stents, Percutaneous Transluminal Angioplasty GI Surgical History: Reports: Cholecystectomy Other GI Surgeries/Procedures: abd surgery pt is unsure what for Male Surgical History: Reports: Prostate Biopsy Musculoskeletal Surgical History: Reports: Knee Replacement Other Musculoskeletal Surgeries/Procedures:: left knee Social & Family History - Family History Family Medical History: No Pertinent Family History HEENT: Reports: None Cardiac: Reports: CAD, [place] Respiratory: Reports: Asthma GI: Reports: None : Reports: None OBGYN: Reports: None Musculoskeletal: Reports: None Neurological: Reports: Alzheimers Disease Psychiatric: Reports: None Endocrine/Metabolic: Reports: None Hematologic: Reports: None Immunologic: Reports: None Oncologic: Reports: None - Caffeine Use Caffeine Use: Reports: Coffee Caffeine Use Comment: 3 cups a day ED ROS GENERAL - Review of Systems Review Of Systems: Comprehensive ROS is negative, except as noted in HPI. ED EXAM, GENERAL - Physical Exam Exam: See Below Exam Limited By: No Limitations General Appearance: Alert, No Apparent Distress Eye Exam: Bilateral Eye: EOMI, Normal Inspection, PERRL (3mm) Ears: Normal External Exam, Normal Canal, Hearing Grossly Normal, Normal TMs Ear Exam: Bilateral Ear: Auricle Normal, Canal Normal, TM normal Nose: Normal Inspection, Normal Mucosa, No Blood Throat/Mouth: Normal Voice, No Airway Compromise, Other (White coated tongue). No: Normal Inspection Head: Atraumatic, Normocephalic Neck: Normal Inspection, Supple, Limited Range of Motion, Tender Lateral (To right posterior neck with movement). No: Tender Midline Respiratory/Chest: No Respiratory Distress, No Accessory Muscle Use, Chest Non- Tender, Rhonchi (Diffuse to bilateral lobes). No: Crackles, Rales, Wheezing, Retractions, Prolonged Expiration Cardiovascular: Normal Peripheral Pulses, Regular Rate, Rhythm, No Edema, No Gallop, No JVD, No Murmur, No Rub Peripheral Pulses: 2+: Radial (L), Radial (R) GI/Abdominal: Normal Bowel Sounds, Soft, Non-Tender, No Abnormal Bruit, No Mass, Pelvis Stable, Distended (Male) Exam: Deferred Rectal (Males) Exam: Deferred Back Exam: Normal Inspection, Full Range of Motion. No: CVA Tenderness (L), CVA Tenderness (R) Extremities: Normal Inspection, Normal Range of Motion, Normal Capillary Refill Neurological: Alert, Oriented (To person and place), Normal Reflexes, No Motor/Sensory Deficits, Disoriented (To time) Psychiatric: Normal Affect, Normal Mood Skin Exam: Warm, Dry, Intact, Normal Color, No Rash. No: Cyanosis, Jaundice, Mottled, Pallor Lymphatic: No Adenopathy #1 Interpretation EKG Date: 12/06/20 Time: 02:56 Rhythm: NSR Rate (Beats/Min): 73 Ute: Normal P-Wave: Present QRS: LBBB (1.3) ST-T: Normal QT: Normal SD/PQ Interval: 0.134 Comparison: No Change EKG Interpretation Comments: NSR; LBBB; No evidence of acute myocardial ischemia Course - Vital Signs Last Recorded V/S: Last Vital Signs Temp 97.1 F 12/06/20 09:47 Pulse 72 12/06/20 02:59 Resp 18 12/06/20 09:47 BP 130/88 12/06/20 09:47 Pulse Ox 94 L 12/06/20 09:47 - Orders/Labs/Meds Labs: Laboratory Tests 12/06/20 12/06/20 12/06/20 Range/Units 03:05 03:05 07:08 WBC 11.0 H (5.0-10.0) 10^3/uL RBC 4.34 L (4.6-6.2) 10^6/uL Hgb 13.9 L D (14.0-18.0) g/dL Hct 41.5 (40.0-54.0) % MCV 95.6 (80-100) fL MCH 32.0 (27.0-34.0) pg MCHC 33.5 (33.0-35.0) g/dL Plt Count 265 (150-450) 10^3/uL Neut % (Auto) 82.4 H (42.2-75.2) % Lymph % (Auto) 4.6 L (20.5-50.1) % Scurry % (Auto) 12.3 H (2-8) % Eos % (Auto) 0.2 L (1.0-3.0) % Baso % (Auto) 0.5 (0.0-1.0) % Sodium 138 (136-145) mmol/L Potassium 4.0 (3.5-5.1) mmol/L Chloride 101 (98-107) mmol/L Carbon Dioxide 25 (21-32) mmol/L Anion Gap 16.0 H (7-13) mEq/L BUN 10 (7-18) mg/dL Creatinine 0.88 (0.70-1.30) mg/dL Est Cr Clr Drug Dosing 58.40 mL/min Estimated GFR (MDRD) > 60 BUN/Creatinine Ratio 11.4 (No establ ref range) Glucose 165 H (70-99) mg/dL Lactic Acid 0.8 (0.4-2.0) mmol/L Calcium 8.9 (8.5-10.1) mg/dL Magnesium 1.7 L (1.8-2.4) mg/dL Total Bilirubin 0.9 (0.2-1.0) mg/dL AST 20 (15-37) U/L ALT 53 (16-63) U/L Alkaline Phosphatase 79 (46-116) U/L Troponin I High Sens 9 (<=76) pg/mL C-Reactive Protein 5.8 H (0.0-0.9) mg/dL B-Natriuretic Peptide 59 (0-100) pg/ml Total Protein 6.6 (6.4-8.2) g/dL Albumin 3.2 L (3.4-5.0) g/dL Globulin 3.4 g/dL Albumin/Globulin Ratio 0.94 Amylase 47 (25-115) U/L Lipase 55 L (73-393) U/L Ethyl Alcohol < 3 (0) mg/dL Meds: Medications Discontinued Medications Generic Name Dose Route Start Last Admin Trade Name Ajayq PRN Reason Stop Dose Admin Iopamidol 100 ml 12/06/20 08:06 12/06/20 08:27 Iopamidol 612 Mg/Ml 100 Ml Bottle IVPUSH 12/06/20 08:07 75 ml ONETIME ONE Administration Midazolam HCl 2 mg 12/06/20 07:27 12/06/20 07:32 Midazolam 1 Mg/Ml 2 Ml Sdv IVPUSH 12/06/20 07:28 1 mg ONETIME ONE Administration - Radiology Interpretation Free Text/Narrative:: [facility] Final Radiology Report Call: [phone] assistance Online chat: [email or web address] Name: TONY CORTES Age: 80Years M Date: 12/06/2020 SSN: -- : 1940 Study: CR CHEST 1V FRONTAL Requesting Physician: Stacey Jamil Images: 1 Addl Studies: Provided Clinical History: Rhonchi, difffuse; WBC 11 Contrast: Contrast Medium: Contrast Amount: Contrast Method: Page 1 of 2 PROCEDURE INFORMATION: Exam: XR Chest Exam date and time: 12/06/2020 4:43 AM Age: 80 years old Clinical indication: Other: Rhonchi, difffuse; Wbc 11 TECHNIQUE: Imaging protocol: XR of the chest. Views: 1 view. COMPARISON: CR Chest 1V Frontal 11/18/2020 12:37 AM FINDINGS: Lungs: A small area of subsegmental atelectasis is seen at the left lung base which is a new finding since the previous chest radiograph from 11/18/2020. Both lungs are otherwise well-aerated. Pleural spaces: Unremarkable. No pleural effusion. No pneumothorax. Heart/Mediastinum: Unremarkable. No cardiomegaly. Bones/joints: Unremarkable. IMPRESSION: A small area of subsegmental atelectasis is seen at the left lung base which is a new finding since the previous chest radiograph from 11/18/2020. Both lungs are otherwise well-aerated. No evidence of acute pneumonia. Thank you for allowing us to participate in the care of your patient. Dictated and Authenticated by: Maulik Zuñiga MD 12/06/2020 6:26 AM Central Time ([place] & [place]) [facility] Final Radiology Report Call: [phone] assistance Online chat: [email or web address] Name: TONY CORTES Age: 80Years M Date: 12/06/2020 SSN: -- : 1940 Study: CR ABDOMEN 1V FLAT Requesting Physician: Stacey Jamil Images: 2 Addl Studies: Provided Clinical History: Distention Contrast: Contrast Medium: Contrast Amount: Contrast Method: CONFIDENTIALITY STATEMENT This report is intended only for use by the referring physician, and only in accordance with law. If you received this in error, call [phone]. Page 1 of 1 PROCEDURE INFORMATION: Exam: XR Abdomen Exam date and time: 12/06/2020 4:41 AM Age: 80 years old Clinical indication: Other: Abd distention TECHNIQUE: Imaging protocol: XR of the abdomen. Views: Frontal supine view of the abdomen. 1 View. COMPARISON: CR Chest 1V Frontal 11/18/2020 12:37 AM FINDINGS: Gastrointestinal tract: Mild gaseous distension of the small bowel with some l oops of the small bowel distended more than 3 cm in size, suggestive of a significant postoperative ileus versus early distal small bowel obstruction. Bones/joints: Unremarkable. Soft tissues: Skin kesha are present overlying the right upper quadrant abdomen. IMPRESSION: 1. Skin kesha are present overlying the right upper quadrant abdomen. 2. Mild gaseous distension of the small bowel with some loops of the small bowel distended more than 3 cm in size, suggestive of a significant postoperative ileus versus early distal small bowel obstruction. Thank you for allowing us to participate in the care of your patient. Dictated and Authenticated by: Maulik Zuñiga MD 12/06/2020 6:57 AM Central Time ([place] & [place]) - Re-Assessments/Exams Free Text/Narrative Re-Assessment/Exam: 12/06/20 Patient denies pain at this time, however given distention of abdomen will obtain KUB. CXR performed given findings of physical exam. Care of patient transferred to [facility] at 0700. Sepsis Event Note (ED) - Evaluation Sepsis Screening Result: No Definite Risk"
[2020-12-06 03:38] LABS: CHLORIDE,CL 101 mmol/L (98-107); SODIUM,NA 138 mmol/L (136-145)
--- NOTE | 2020-12-06 06:26 | CR ---
PROCEDURE INFORMATION: Exam: XR Chest Exam date and time: 12/06/2020 4:43 AM Age: 80 years old Clinical indication: Other: Rhonchi, difffuse; Wbc 11 TECHNIQUE: Imaging protocol: XR of the chest. Views: 1 view. COMPARISON: CR Chest 1V Frontal 11/18/2020 12:37 AM FINDINGS: Lungs: A small area of subsegmental atelectasis is seen at the left lung base which is a new finding since the previous chest radiograph from 11/18/2020. Both lungs are otherwise well-aerated. Pleural spaces: Unremarkable. No pleural effusion. No pneumothorax. Heart/Mediastinum: Unremarkable. No cardiomegaly. Bones/joints: Unremarkable. IMPRESSION: A small area of subsegmental atelectasis is seen at the left lung base which is a new finding since the previous chest radiograph from 11/18/2020. Both lungs are otherwise well-aerated. No evidence of acute pneumonia.
--- NOTE | 2020-12-06 06:58 | CR ---
PROCEDURE INFORMATION: Exam: XR Abdomen Exam date and time: 12/06/2020 4:41 AM Age: 80 years old Clinical indication: Other: Abd distention TECHNIQUE: Imaging protocol: XR of the abdomen. Views: Frontal supine view of the abdomen. 1 View. COMPARISON: CR Chest 1V Frontal 11/18/2020 12:37 AM FINDINGS: Gastrointestinal tract: Mild gaseous distension of the small bowel with some loops of the small bowel distended more than 3 cm in size, suggestive of a significant postoperative ileus versus early distal small bowel obstruction. Bones/joints: Unremarkable. Soft tissues: Skin kesha are present overlying the right upper quadrant abdomen. IMPRESSION: 1. Skin kesha are present overlying the right upper quadrant abdomen. 2. Mild gaseous distension of the small bowel with some loops of the small bowel distended more than 3 cm in size, suggestive of a significant postoperative ileus versus early distal small bowel obstruction.
[2020-12-06] MEDS ORDERED: Midazolam 1 MG/ML 2 ML SDV IVPUSH ONE (07:27)
[2020-12-06] MEDS ORDERED: Iopamidol 612 MG/ML 100 ML Bottle IVPUSH ONE (08:06)
--- NOTE | 2020-12-06 08:37 | CR ---
PROCEDURE INFORMATION: Exam: XR Chest Exam date and time: 12/06/2020 7:56 AM Age: 80 years old Clinical indication: Device placement; Ng tube; Prior surgery; Additional info: Id if the tube is coiled TECHNIQUE: Imaging protocol: XR of the chest. Views: 1 view. COMPARISON: CR Chest 1V Frontal 12/06/2020 4:43 AM FINDINGS: Tubes, catheters and devices: Comparison to the previous chest radiograph from 12/06/2020 at 4:43 a.m. shows interval placement of an esophagogastric tube with the distal tip of the tube in the proximal stomach left upper quadrant abdomen. Lungs: No acute cardiopulmonary disease, although the left hemidiaphragm is slightly elevated and a small area of basal atelectasis could be present in the left lower lobe. Pleural spaces: Unremarkable. No pleural effusion. No pneumothorax. Heart/Mediastinum: Unremarkable. No cardiomegaly. Bones/joints: Unremarkable. IMPRESSION: 1. Comparison to the previous chest radiograph from 12/06/2020 at 4:43 a.m. shows interval placement of an esophagogastric tube with the distal tip of the tube in the proximal stomach left upper quadrant abdomen. 2. No acute cardiopulmonary disease, although the left hemidiaphragm is slightly elevated and a small area of basal atelectasis could be present in the left lower lobe.
--- NOTE | 2020-12-06 08:51 | CT ---
PROCEDURE INFORMATION: Exam: CT Abdomen And Pelvis With Contrast Exam date and time: 12/06/2020 8:24 AM Age: 80 years old Clinical indication: Abdominal pain; Prior surgery; Additional info: Abdominal pain/distention, suspected sbo TECHNIQUE: Imaging protocol: Computed tomography of the abdomen and pelvis with contrast. Radiation optimization: All CT scans at this facility use at least one of these dose optimization techniques: automated exposure control; mA and/or kV adjustment per patient size (includes targeted exams where dose is matched to clinical indication); or iterative reconstruction. Contrast material: ISOVUE 300; Contrast volume: 75 ml; Contrast route: INTRAVENOUS (IV); COMPARISON: CR Abdomen 1V Flat 12/06/2020 4:41 AM FINDINGS: Lungs: No acute abnormality is seen in the lung bases. Heart: Borderline cardiomegaly. Mitral valve annular calcification noted. Liver: Normal. No mass. Gallbladder and bile ducts: Prior cholecystectomy. The common bile duct measures up to 11 mm in diameter which is within normal limits considering the patient's age group and prior surgery. The intrahepatic biliary ducts appear normal. Pancreas: Normal. No dilatation of the main pancreatic duct. Spleen: Normal. No splenomegaly. Adrenal glands: Normal. No mass. Kidneys and ureters: There is a 1.1 cm hypodense mass present in the lower pole cortex of the right kidney on image 38 of series 2. This mass has a benign appearance with a smooth, well-defined thin wall and low internal CT attenuation and is likely a Bosniak type I simple cyst. Stomach and bowel: Moderate distal colonic diverticulosis is present, with no evidence of acute diverticulitis. No bowel obstruction or significant ileus. No mucosal thickening. An esophagogastric tube is present with the distal tip of the tube in the left upper quadrant abdomen gastric fundus region. Appendix: No evidence of appendicitis. Intraperitoneal space: Unremarkable. No free air. No significant fluid collection. Vasculature: Atherosclerotic calcific plaque disease is present in the abdominal aorta and iliofemoral arteries. No abdominal aortic aneurysm. Lymph nodes: Unremarkable. No enlarged lymph nodes. Urinary bladder: Unremarkable as visualized. Reproductive: The prostate is at the upper limits of normal size measuring 4.8 cm transversely. 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 Chronic calcific enthesopathy is seen in the attachments of the hamstring tendons to the inferior ischial tuberosities bilaterally. Soft tissues: Unremarkable. IMPRESSION: 1. Moderate distal colonic diverticulosis is present, with no evidence of acute diverticulitis. No bowel obstruction or significant ileus. No mucosal thickening. An esophagogastric tube is present with the distal tip of the tube in the left upper quadrant abdomen gastric fundus region. 2. Borderline cardiomegaly. Mitral valve annular calcification noted. 3. Prior cholecystectomy. The common bile duct measures up to 11 mm in diameter which is within normal limits considering the patient's age group and prior surgery. The intrahepatic biliary ducts appear normal. 4. There is a 1.1 cm hypodense mass present in the lower pole cortex of the right kidney on image 38 of series 2. This mass has a benign appearance with a smooth, well-defined thin wall and low internal CT attenuation and is likely a Bosniak type I simple cyst. No further follow-up is recommended. Reference: Johan JACOBSON, Management of the Incidental Renal Mass on CT: A White Paper of the ACR Incidental Findings Committee, J Am Marco A Radiol 2018. No hydronephrosis. 5. Atherosclerotic calcific plaque disease is present in the abdominal aorta and iliofemoral arteries. No abdominal aortic aneurysm. 6. The prostate is at the upper limits of normal size measuring 4.8 cm transversely. 7. 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 Chronic calcific enthesopathy is seen in the attachments of the hamstring tendons to the inferior ischial tuberosities bilaterally. COMMENTS: Consistent with the [employer]'s Incidental Findings Committee white paper (J Am Marco A Radiol 2018): Any incidental renal lesion less than 1 cm or classified as too small to characterize, or any incidental cystic renal lesion characterized as simple-appearing, is likely benign. No follow-up imaging is recommended for these lesions per consensus recommendations based on imaging criteria.
[2020-12-06 10:22] VITALS: BP 130/88
== END 2020-12-06 09:52 | disposition home or self-care (01) ==
LOC: DL.ED 02:49
DX: K56.7 Ileus, unspecified (principal); I48.91 Unspecified atrial fibrillation; I25.10 Atherosclerotic heart disease of native coronary artery without angina pectoris; E78.00 Pure hypercholesterolemia, unspecified; I10 Essential (primary) hypertension; J44.9 Chronic obstructive pulmonary disease, unspecified; E11.9 Type 2 diabetes mellitus without complications; Z86.73 Personal history of transient ischemic attack (TIA), and cerebral infarction without residual deficits; Z79.82 Long term (current) use of aspirin; Z79.899 Other long term (current) drug therapy; Z95.5 Presence of coronary angioplasty implant and graft
CPT/HCPCS: 36415; 71045; 74018; 74177; 80053; 80307; 82150; 83605; 83690; 83735; 83880; 84484; 85025; 86140; 93005; 96374; 99285-25; J2250; Q9967

== ENCOUNTER 2021-02-09 17:55 | Emergency (ER) | payer MEDICARE, MEDICAID ==
[2021-02-09 20:06] LABS: ANION GAP 13.9 mEq/L (7-13); CHLORIDE,CL 103 mmol/L (98-107); SODIUM,NA 138 mmol/L (136-145)
[2021-02-09 20:27] VITALS: PULSE 86
--- NOTE | 2021-02-09 21:26 | EDM.PDOC ---
ED HPI GENERAL MEDICAL PROBLEM - General Chief Complaint: General Stated Complaint: 98.2*, FEVER, FATIGUE, UTI Time Seen by Provider: 02/09/21 19:25 Source of Information: Reports: Patient, Jail Records, RN History Limitations: Reports: No Limitations - History of Present Illness INITIAL COMMENTS - FREE TEXT/NARRATIVE: ED per w/c, from [facility] [place] Staff concerned if UTI, Patient unsure why he is here. Hx dementia, ZORAN and history limited. Fever reported by staff, hx UTI's in past. Patient denies c/o No SOB, No vomiting no diarrhea, No weakness. No abdominal pain. No chest pain. - Related Data Allergies Allergy/AdvReac Type Severity Reaction Status Date / Time No Known Allergies Allergy Verified 02/09/21 20:27 Home Meds: Home Meds Diltiazem HCl [Cardizem LA] 240 mg PO DAILY 03/18/13 [History] Lisinopril 40 mg PO DAILY 03/18/13 [History] atorvaSTATin [Lipitor] 20 mg PO BEDTIME 03/18/13 [History] Aspirin [Ecotrin EC] 81 mg PO DAILY 04/01/16 [History] Ascorbic Acid [Vitamin C] 500 mg PO DAILY 30 Days #30 tablet 11/18/20 [Rx] Ferrous Sulfate 325 mg PO BIDMEALS 30 Days #60 tablet 11/18/20 [Rx] Isosorbide Mononitrate [Imdur] 30 mg PO DAILY 11/18/20 [History] Omeprazole 20 mg PO DAILY 11/18/20 [History] QUEtiapine [SEROquel] 25 mg PO BEDTIME 11/18/20 [History] Tamsulosin [Flomax] 0.4 mg PO DAILY 11/18/20 [History] glipiZIDE [Glucotrol XL] 5 mg PO DAILY 11/18/20 [History] metFORMIN [Glucophage] 500 mg PO BIDMEALS 11/18/20 [History] Past Medical History HEENT History: Reports: Impaired Vision Other HEENT History: wears glasses Cardiovascular History: Reports: Afib, CAD, High Cholesterol, Hypertension, Stents Respiratory History: Reports: COPD Gastrointestinal History: Reports: None Genitourinary History: Reports: UTI, Recurrent Musculoskeletal History: Reports: Osteoarthritis Neurological History: Reports: CVA Psychiatric History: Reports: Dementia Endocrine/Metabolic History: Reports: Diabetes, Type II Hematologic History: Reports: None Immunologic History: Reports: None Oncologic (Cancer) History: Reports: None Dermatologic History: Reports: None - Infectious Disease History Infectious Disease History: Reports: Other (See Below) Other Infectious Disease History: Pt unsure - Past Surgical History Head Surgeries/Procedures: Reports: Other (See Below) Cardiovascular Surgical History: Reports: Carotid Stents, Percutaneous Transluminal Angioplasty GI Surgical History: Reports: Cholecystectomy Other GI Surgeries/Procedures: abd surgery pt is unsure what for Male Surgical History: Reports: Prostate Biopsy Musculoskeletal Surgical History: Reports: Knee Replacement Other Musculoskeletal Surgeries/Procedures:: left knee Social & Family History - Family History Family Medical History: No Pertinent Family History HEENT: Reports: None Cardiac: Reports: CAD, [place] Respiratory: Reports: Asthma GI: Reports: None : Reports: None OBGYN: Reports: None Musculoskeletal: Reports: None Neurological: Reports: Alzheimers Disease Psychiatric: Reports: None Endocrine/Metabolic: Reports: None Hematologic: Reports: None Immunologic: Reports: None Oncologic: Reports: None - Tobacco Use Tobacco Use Status *Q: Never Tobacco User Second Hand Smoke Exposure: No - Caffeine Use Caffeine Use: Reports: Coffee Caffeine Use Comment: 3 cups a day - Recreational Drug Use Recreational Drug Use: No ED ROS GENERAL - Review of Systems Review Of Systems: Unable To Obtain Reason Not Obtained: dementia ED EXAM, GENERAL - Physical Exam Exam: See Below Exam Limited By: No Limitations General Appearance: Alert, No Apparent Distress Eye Exam: Bilateral Eye: EOMI Ears: Normal External Exam. No: Hearing Loss Nose: Normal Inspection Throat/Mouth: Normal Inspection Head: Atraumatic, Normocephalic Neck: Normal Inspection Respiratory/Chest: No Respiratory Distress, Lungs Clear, Normal Breath Sounds Cardiovascular: Regular Rate, Rhythm GI/Abdominal: Normal Bowel Sounds, Soft, Distended. No: Tender, Hernia Back Exam: Normal Inspection, Full Range of Motion Neurological: Alert, Oriented, Normal Cognition Skin Exam: Warm, Dry, Intact, Normal Color Course - Vital Signs Last Recorded V/S: Last Vital Signs Temp 99.9 F 02/09/21 21:38 Pulse 86 02/09/21 20:25 Resp 20 02/09/21 21:38 BP 120/88 02/09/21 21:38 Pulse Ox 93 L 02/09/21 20:25 - Orders/Labs/Meds Orders: Active Orders 24 hr Category Date Time Status CULTURE BLOOD [BC] Stat Lab 02/09/21 19:45 Results CULTURE URINE [RM] Stat Lab 02/09/21 18:30 Received Labs: Laboratory Tests 02/09/21 02/09/21 02/09/21 Range/Units 18:30 19:00 19:45 WBC 8.4 (5.0-10.0) 10^3/uL RBC 4.06 L (4.6-6.2) 10^6/uL Hgb 13.1 L (14.0-18.0) g/dL Hct 38.7 L (40.0-54.0) % MCV 95.3 (80-100) fL MCH 32.3 (27.0-34.0) pg MCHC 33.9 (33.0-35.0) g/dL Plt Count 247 (150-450) 10^3/uL Neut % (Auto) 76.0 H (42.2-75.2) % Lymph % (Auto) 11.5 L (20.5-50.1) % [place] % (Auto) 11.5 H (2-8) % Eos % (Auto) 0.6 L (1.0-3.0) % Baso % (Auto) 0.4 (0.0-1.0) % Sodium (136-145) mmol/L Potassium (3.5-5.1) mmol/L Chloride (98-107) mmol/L Carbon Dioxide (21-32) mmol/L Anion Gap (7-13) mEq/L BUN (7-18) mg/dL Creatinine (0.70-1.30) mg/dL Est Cr Clr Drug Dosing Estimated GFR (MDRD) BUN/Creatinine Ratio (No establ ref range) Glucose (70-99) mg/dL Lactic Acid (0.4-2.0) mmol/L Calcium (8.5-10.1) mg/dL Total Bilirubin (0.2-1.0) mg/dL AST (15-37) U/L ALT (16-63) U/L Alkaline Phosphatase (46-116) U/L Total Protein (6.4-8.2) g/dL Albumin (3.4-5.0) g/dL Globulin Albumin/Globulin Ratio Urine Color Yellow (YELLOW) Urine Appearance Slightly cloudy (CLEAR) Urine pH 6.0 (5.0-9.0) Ur Specific Bailey 1.025 (1.005-1.030) Urine Protein Negative (NEGATIVE) Urine Glucose (UA) Negative (NEGATIVE) Urine Ketones Negative (NEGATIVE) Urine Occult Blood Negative (NEGATIVE) Urine Nitrite Negative (NEGATIVE) Urine Bilirubin Negative (NEGATIVE) Urine Urobilinogen 1.0 (0.2-1.0) mg/dL Ur Leukocyte Esterase Moderate H (NEGATIVE) Urine RBC Not seen (0-5) /HPF Urine WBC Semi-packed H (0-5/HPF) /HPF Ur Epithelial Cells Many H (NOT SEEN) /HPF Urine Bacteria Many H (0-FEW/HPF) /HPF SARS-CoV-2 RNA (SWETHA) Negative (NEGATIVE) 02/09/21 02/09/21 Range/Units 19:45 19:45 WBC (5.0-10.0) 10^3/uL RBC (4.6-6.2) 10^6/uL Hgb (14.0-18.0) g/dL Hct (40.0-54.0) % MCV (80-100) fL MCH (27.0-34.0) pg MCHC (33.0-35.0) g/dL Plt Count (150-450) 10^3/uL Neut % (Auto) (42.2-75.2) % Lymph % (Auto) (20.5-50.1) % [place] % (Auto) (2-8) % Eos % (Auto) (1.0-3.0) % Baso % (Auto) (0.0-1.0) % Sodium 138 (136-145) mmol/L Potassium 3.9 (3.5-5.1) mmol/L Chloride 103 (98-107) mmol/L Carbon Dioxide 25 (21-32) mmol/L Anion Gap 13.9 H (7-13) mEq/L BUN 11 (7-18) mg/dL Creatinine 0.94 (0.70-1.30) mg/dL Est Cr Clr Drug Dosing TNP Estimated GFR (MDRD) > 60 BUN/Creatinine Ratio 11.7 (No establ ref range) Glucose 173 H (70-99) mg/dL Lactic Acid 2.2 H* (0.4-2.0) mmol/L Calcium 9.1 (8.5-10.1) mg/dL Total Bilirubin 0.6 (0.2-1.0) mg/dL AST 10 L (15-37) U/L ALT 22 (16-63) U/L Alkaline Phosphatase 86 (46-116) U/L Total Protein 6.9 (6.4-8.2) g/dL Albumin 3.5 (3.4-5.0) g/dL Globulin 3.4 Albumin/Globulin Ratio 1.0 Urine Color (YELLOW) Urine Appearance (CLEAR) Urine pH (5.0-9.0) Ur Specific Bailey (1.005-1.030) Urine Protein (NEGATIVE) Urine Glucose (UA) (NEGATIVE) Urine Ketones (NEGATIVE) Urine Occult Blood (NEGATIVE) Urine Nitrite (NEGATIVE) Urine Bilirubin (NEGATIVE) Urine Urobilinogen (0.2-1.0) mg/dL Ur Leukocyte Esterase (NEGATIVE) Urine RBC (0-5) /HPF Urine WBC (0-5/HPF) /HPF Ur Epithelial Cells (NOT SEEN) /HPF Urine Bacteria (0-FEW/HPF) /HPF SARS-CoV-2 RNA (SWETHA) (NEGATIVE) Meds: Medications Discontinued Medications Generic Name Dose Route Start Last Admin Trade Name Freq PRN Reason Stop Dose Admin Levofloxacin 500 mg 02/09/21 21:28 02/09/21 21:36 Levofloxacin 500 Mg Tab PO 02/09/21 21:29 500 mg ONETIME ONE Administration Departure - Departure Time of Disposition: 21:10 Disposition: Home, Self-Care 01 Condition: Good Clinical Impression: UTI, Urinary tract infectious disease, Constipation by delayed colonic transit - Discharge Information *PRESCRIPTION DRUG MONITORING PROGRAM REVIEWED*: No *COPY OF PRESCRIPTION DRUG MONITORING REPORT IN PATIENT KJ: No Instructions: Urinary Tract Infection, Adult, [id number] Referrals: PCP,None [Primary Care Provider] - Forms: ED Department Discharge Additional Instructions: fluids increase attempts to empty bladder miralax one capful daily in 8 ounces liquid levaquin 500mg one daily for 7 days Recheck in clinic this week Sepsis Event Note (ED) - Evaluation Sepsis Screening Result: No Definite Risk - Focused Exam Vital Signs: Vital Signs Temp Pulse Resp BP Pulse Ox 02/09/21 21:38 99.9 F 20 120/88 02/09/21 20:25 97.9 F 86 23 H 150/70 H 93 L 02/09/21 18:38 100.2 F 104 H 20 142/61 H 96 - My Orders Last 24 Hours: My Active Orders 02/09/21 19:45 CULTURE BLOOD [BC] Stat - Assessment/Plan Last 24 Hours: My Active Orders 02/09/21 19:45 CULTURE BLOOD [BC] Stat
[2021-02-09] MEDS ORDERED: Levofloxacin 500 MG Tab PO ONE (21:28)
[2021-02-09 21:41] VITALS: BP 120/88
--- NOTE | 2021-02-09 21:51 | CR ---
PROCEDURE INFORMATION: Exam: XR Chest Exam date and time: 02/09/2021 8:50 PM Age: 80 years old Clinical indication: Fever; Additional info: Bloating TECHNIQUE: Imaging protocol: XR of the chest. Views: 1 view. COMPARISON: CR Chest 1V Frontal 12/06/2020 7:56 AM FINDINGS: Lungs: Bilateral hyperinflation is present. Atelectatic changes noted within both lung bases. Pleural spaces: Unremarkable. No pleural effusion. No pneumothorax. Heart/Mediastinum: Unremarkable. No cardiomegaly. Vasculature: The vasculature demonstrates diffuse mild atherosclerotic calcification. Bones/joints: Unremarkable. IMPRESSION: 1. Bilateral hyperinflation is present. 2. Atelectatic changes noted within both lung bases.
--- NOTE | 2021-02-09 21:52 | CR ---
PROCEDURE INFORMATION: Exam: XR Abdomen Exam date and time: 02/09/2021 8:42 PM Age: 80 years old Clinical indication: Bloating TECHNIQUE: Imaging protocol: XR of the abdomen. Views: 2 Views. Upright and supine views. COMPARISON: CR Abdomen 1V Flat 12/06/2020 4:41 AM FINDINGS: Tubes, catheters and devices: Surgical clips project over the right upper quadrant. Gastrointestinal tract: A large amount of stool is noted throughout the colon. The bowel gas pattern is nonobstructive and nonspecific. Intraperitoneal space: Normal. No free air. Bones/joints: The lumbar spine demonstrates mild degenerative changes at multiple levels. IMPRESSION: 1. A large amount of stool is noted throughout the colon. 2. The bowel gas pattern is nonobstructive and nonspecific. 3. The lumbar spine demonstrates mild degenerative changes at multiple levels.
== END 2021-02-09 21:44 | disposition home or self-care (01) ==
LOC: DL.ED 17:55
DX: N39.0 Urinary tract infection, site not specified (principal); K59.01 Slow transit constipation; I48.91 Unspecified atrial fibrillation; I25.10 Atherosclerotic heart disease of native coronary artery without angina pectoris; E78.00 Pure hypercholesterolemia, unspecified; I10 Essential (primary) hypertension; J44.9 Chronic obstructive pulmonary disease, unspecified; E11.9 Type 2 diabetes mellitus without complications; M19.90 Unspecified osteoarthritis, unspecified site; Z95.5 Presence of coronary angioplasty implant and graft; Z86.73 Personal history of transient ischemic attack (TIA), and cerebral infarction without residual deficits; Z79.82 Long term (current) use of aspirin; Z79.84 Long term (current) use of oral hypoglycemic drugs; Z20.822 Contact with and (suspected) exposure to COVID-19; Z79.899 Other long term (current) drug therapy
CPT/HCPCS: 36415; 71045; 74019; 80053; 81001; 83605; 85025; 87040; 87086; 99284; A9270; U0002

== ENCOUNTER 2022-03-26 21:27 | Emergency (ER) | payer MEDICARE, MEDICAID ==
[2022-03-26 22:03] LABS: ANION GAP 11.3 mEq/L (7-13); CHLORIDE,CL 104 mmol/L (98-107); SODIUM,NA 140 mmol/L (136-145)
[2022-03-26 22:04] LABS: ESTIMATED GFR 85 mL/min (>=60)
[2022-03-26] MEDS ORDERED: Magnesium Sulfate/Water 2 GM in Premix Bag 1 BAG IV ONE (22:09)
[2022-03-26 22:16] LABS: RESPIRATORY SYNCYTIAL VIR NAA NEGATIVE (NEGATIVE)
[2022-03-26 22:18] LABS: CORONAVIRUS COVID-19 NAA POSITIVE (NEGATIVE)
[2022-03-26 22:23] VITALS: BP 138/50; PULSE 51
[2022-03-26 22:36] LABS: AMPHETAMINES,URINE NEGATIVE (NEGATIVE); BARBITURATES,URINE NEGATIVE (NEGATIVE); BENZODIAZEPINE,URINE NEGATIVE (NEGATIVE); MDMA (ECSTASY), URINE NEGATIVE (NEGATIVE); METHADONE,URINE POSITIVE (NEGATIVE); METHAMPHETAMINES,URINE NEGATIVE (NEGATIVE); OPIATES,URINE NEGATIVE (NEGATIVE); OXYCODONE,URINE NEGATIVE (NEGATIVE); PHENCYCLIDINE,URINE NEGATIVE (NEGATIVE); TCA,URINE NEGATIVE (NEGATIVE)
[2022-03-26] MEDS ORDERED: Scopolamine 1.5 MG Transdermal Patch TRDERM ONE (23:08)
[2022-03-26] MEDS ORDERED: Sulfamethoxazole/Trimethoprim 800-160 MG Tab PO ONE (23:25)
== END 2022-03-26 23:45 | disposition home or self-care (01) ==
LOC: DL.ED 21:27
DX: U07.1 COVID-19 (principal); E83.42 Hypomagnesemia; I44.1 Atrioventricular block, second degree; I48.91 Unspecified atrial fibrillation; I25.10 Atherosclerotic heart disease of native coronary artery without angina pectoris; E78.00 Pure hypercholesterolemia, unspecified; I10 Essential (primary) hypertension; J44.9 Chronic obstructive pulmonary disease, unspecified; M19.90 Unspecified osteoarthritis, unspecified site; E11.9 Type 2 diabetes mellitus without complications; Z79.82 Long term (current) use of aspirin; Z79.84 Long term (current) use of oral hypoglycemic drugs; Z79.899 Other long term (current) drug therapy
CPT/HCPCS: 0241U; 36415; 71045; 80053; 80305; 80307; 81001; 82150; 83605; 83690; 83735; 84443; 84484; 85025; 86140; 87086; 93005; 96365; 99284; A9270; J3475

== ENCOUNTER 2022-04-02 15:28 | Emergency (ER) | payer MEDICARE, MEDICAID ==
[2022-04-02] MEDS ORDERED: 50% Dextrose in Water 50 ML Syringe ONE (16:01)
[2022-04-02 16:06] LABS: ANION GAP 9.4 mEq/L (7-13); CHLORIDE,CL 101 mmol/L (98-107); SODIUM,NA 131 mmol/L (136-145)
[2022-04-02 16:18] LABS: ESTIMATED GFR 57 mL/min (>=60)
== END 2022-04-02 17:53 | disposition home or self-care (01) ==
LOC: DL.ED 15:28
DX: E11.649 Type 2 diabetes mellitus with hypoglycemia without coma (principal); I44.1 Atrioventricular block, second degree; I48.91 Unspecified atrial fibrillation; I25.10 Atherosclerotic heart disease of native coronary artery without angina pectoris; E78.00 Pure hypercholesterolemia, unspecified; I10 Essential (primary) hypertension; J44.9 Chronic obstructive pulmonary disease, unspecified; M19.90 Unspecified osteoarthritis, unspecified site; F03.90 Unspecified dementia, unspecified severity, without behavioral disturbance, psychotic disturbance, mood disturbance, and anxiety; I44.7 Left bundle-branch block, unspecified; Z79.82 Long term (current) use of aspirin; Z79.84 Long term (current) use of oral hypoglycemic drugs; Z79.899 Other long term (current) drug therapy; W18.30XA Fall on same level, unspecified, initial encounter
CPT/HCPCS: 36415; 70450; 72125; 80053; 81001; 82947; 85025; 87086; 96374; 99285-25

== ENCOUNTER 2022-04-03 01:27 | Emergency (ER) | payer MEDICARE, MEDICAID ==
[2022-04-03 01:37] VITALS: BP 132/98; PULSE 63
[2022-04-03] MEDS ORDERED: Sodium Chloride 0.9% 10 ML Syringe FLUSH PRN (01:52)
[2022-04-03] MEDS ORDERED: Dextrose 5%-0.9% NaCl 1,000 ML IV SCH (02:00)
[2022-04-03 02:28] LABS: ANION GAP 9.4 mEq/L (7-13); CHLORIDE,CL 105 mmol/L (98-107); SODIUM,NA 136 mmol/L (136-145)
[2022-04-03 02:44] LABS: ESTIMATED GFR 68 mL/min (>=60)
[2022-04-03] MEDS ORDERED: 50% Dextrose in Water 50 ML Syringe IVPUSH ONE (04:07)
[2022-04-03] MEDS ORDERED: 50% Dextrose in Water 50 ML Syringe ONE (04:08)
[2022-04-03] MEDS ORDERED: cefTRIAXone 1 GM Vial IVPUSH ONE (04:09)
== END 2022-04-03 09:00 | disposition home or self-care (01) ==
LOC: DL.ED 01:27
DX: E11.649 Type 2 diabetes mellitus with hypoglycemia without coma (principal); T50.905A Adverse effect of unspecified drugs, medicaments and biological substances, initial encounter; I25.10 Atherosclerotic heart disease of native coronary artery without angina pectoris; I48.91 Unspecified atrial fibrillation; E78.00 Pure hypercholesterolemia, unspecified; I10 Essential (primary) hypertension; Z86.73 Personal history of transient ischemic attack (TIA), and cerebral infarction without residual deficits; Z79.82 Long term (current) use of aspirin; Z79.899 Other long term (current) drug therapy; Z79.84 Long term (current) use of oral hypoglycemic drugs
CPT/HCPCS: 36415; 80048; 82947; 85025; 96365; 96366; 96375; 99285; J0696; J3490; J7042

== ENCOUNTER 2022-06-27 13:23 | Emergency (ER) | payer MEDICARE, MEDICAID ==
[2022-06-27 14:23] LABS: ANION GAP 12.4 mEq/L (7-13); CHLORIDE,CL 104 mmol/L (98-107); SODIUM,NA 141 mmol/L (136-145)
[2022-06-27 14:26] LABS: ACETAMINOPHEN 0 ug/mL (10-30 (Therapeutic)); ESTIMATED GFR 71 mL/min (>=60)
[2022-06-27 15:32] VITALS: BP 166/99; PULSE 73
== END 2022-06-27 15:09 | disposition home or self-care (01) ==
LOC: DL.ED 13:23
DX: I44.1 Atrioventricular block, second degree (principal); I48.91 Unspecified atrial fibrillation; I25.10 Atherosclerotic heart disease of native coronary artery without angina pectoris; I10 Essential (primary) hypertension; E78.00 Pure hypercholesterolemia, unspecified; J44.9 Chronic obstructive pulmonary disease, unspecified; M19.90 Unspecified osteoarthritis, unspecified site; E11.9 Type 2 diabetes mellitus without complications; Z79.82 Long term (current) use of aspirin; Z79.84 Long term (current) use of oral hypoglycemic drugs; Z79.899 Other long term (current) drug therapy
CPT/HCPCS: 36415; 71045; 80053; 80143; 83880; 84484; 85025; 85610; 93005; 93010; 99285

== ENCOUNTER 2022-07-16 19:42 | Emergency (ER) | payer MEDICAID, MEDICARE ==
[2022-07-16 20:28] LABS: ANION GAP 17.6 mEq/L (7-13); CHLORIDE,CL 103 mmol/L (98-107); ESTIMATED GFR 64 mL/min (>=60); SODIUM,NA 143 mmol/L (136-145)
[2022-07-16] MEDS ORDERED: Sodium Chloride 0.9% 1,000 ML IV ONE (20:31)
[2022-07-16] MEDS ORDERED: cefTRIAXone 2 GM Vial IVPUSH ONE (22:28)
[2022-07-16 23:21] VITALS: BP 103/74; PULSE 55
[2022-07-16] MEDS ORDERED: Amiodarone 150 MG/3 ML SDV IVPUSH ONE (23:23)
== END 2022-07-17 00:48 ==
LOC: DL.ED 19:42
DX: I46.9 Cardiac arrest, cause unspecified (principal); N39.0 Urinary tract infection, site not specified; I48.91 Unspecified atrial fibrillation; I25.10 Atherosclerotic heart disease of native coronary artery without angina pectoris; J44.9 Chronic obstructive pulmonary disease, unspecified; E78.00 Pure hypercholesterolemia, unspecified; I10 Essential (primary) hypertension; M19.90 Unspecified osteoarthritis, unspecified site; E11.9 Type 2 diabetes mellitus without complications; Z79.899 Other long term (current) drug therapy; Z79.82 Long term (current) use of aspirin; Z95.5 Presence of coronary angioplasty implant and graft; Z79.84 Long term (current) use of oral hypoglycemic drugs
CPT/HCPCS: 36415; 70450; 71045; 80053; 81001; 83605; 84484; 85025; 87040; 87086; 93005; 93010; 96361; 96365; 96375; 96376; 99285; 99285-25; J0282; J0696; J7030